=== PATIENT | male | born 1990 | race Caucasian/White ===

== ENCOUNTER 2022-08-12 20:40 | Inpatient (IN) | payer OTHER, MEDICAID, SELFPAY ==
[2022-08-12 20:44] VITALS: BP 166/105; PULSE 95; RESP 16; O2SAT 97; BMI 29.1
--- NOTE | 2022-08-12 20:45 | ED_ITS ---
HPI - Psych General Chief Complaint: Psychiatric Symptoms <Tamanna Nolan NP - Last Filed: 08/12/22 20:48> Stated Complaint: crisis eval <Tamanna Nolan NP - Last Filed: 08/12/22 20:48> Time Seen by Provider: 08/12/22 20:59 <Tamanna Nolan NP - Last Filed: 08/12/22 20:48> Source: patient <Celestina Amezcua MD - Last Filed: 08/12/22 22:55> Mode of arrival: ambulatory <Celestina Amezcua MD - Last Filed: 08/12/22 22:55> Limitations: no limitations <Celestina Amezcua MD - Last Filed: 08/12/22 22:55> History of Present Illness HPI Narrative: Patient comes to the emergency room reporting that he feels depressed, suicidal. Patient admits using heroin prior to arrival. Patient's plan is to overdose with heroin. Patient denies homicidal ideation. Patient requesting methadone. <Celestina Amezcua MD - Last Filed: 08/12/22 22:55> Related Data Home Medications: Home Medications Medication Instructions Recorded Confirmed aripiprazole 5 mg tablet 1 tab PO DAILY 08/12/22 08/12/22 bupropion HCl 300 mg 24 hr tablet, 1 tab PO DAILY 08/12/22 08/12/22 extended release clonidine HCl 0.1 mg tablet 1 tab PO DAILY 08/12/22 08/12/22 gabapentin 300 mg capsule 1 cap PO TID 08/12/22 08/12/22 methylphenidate HCl 36 mg 1 tab PO QAM 08/12/22 08/12/22 tablet,extended release 24 hr (Concerta) <Tamanna Nolan NP - Last Filed: 08/12/22 20:48> Allergies/Adverse Reactions: Allergies Allergy/AdvReac Type Severity Reaction Status Date / Time No Known Allergies Allergy Verified 08/12/22 20:48 [No Known Allergies*] <Tamanna Nolan NP - Last Filed: 08/12/22 20:48> Review of Systems Review of Systems: Constitutional : No Weight loss, No Fever, No Chills, No Night Sweats, No Fatigue, No Malaise ENT/Mouth : No Hearing loss, No Ear Pain, No Nasal Congestion, No Sinus Pain, No Hoarseness, No sore throat, No Rhinorrhea, No Swallowing Difficulty Eyes: No Eye Pain, No Swelling, No Redness, No Foreign Body, No Discharge, No Vision Changes Cardiovascular : No Chest Pain, No SOB, No Dyspnea on Exertion, No Orthopnea, No Edema, No Palpitations Respiratory : No Cough, No Sputum, No Wheezing, No Smoke Exposure, No Dyspnea Gastrointestinal : No Nausea, No Vomiting, No Diarrhea, No Constipation, No abdominal Pain, No Hematochezia, No Melena Genitourinary : no irregular bleeding, No Dysuria, No Urinary Frequency, No Hematuria, No Urinary Incontinence, No Urgency, No Flank Pain, No Urinary Flow Changes, No Hesitancy Musculoskeletal : No joint pain, No Myalgias, No Joint Swelling Skin : No Skin Lesions, No rash Neuro : No Weakness, No Numbness, No Paresthesias, No Loss of Consciousness, No Dizziness, No Headache Psych : No Anxiety/Panic, complaining of suicidal ideation, no homicidal ideatio n, admits to substance abuse Heme/Lymph: No Bruising, No Bleeding,No Lymphadenopathy Endocrine : No Polyuria, No Polydipsia, No Temperature Intolerance <Celestina Amezcua MD - Last Filed: 08/12/22 22:55> COUNTS INCLUDE 234 BEDS AT THE [facility] Past Medical History Medical History: Medical History (Updated 08/12/22 @ 22:55 by Celestina Amezcua MD) Substance abuse <Tamanna Nolan NP - Last Filed: 08/12/22 20:48> Social History Social History: Social History Advance Directives: No Advance Directives Information Provided: Yes <Tamanna Nolan NP - Last Filed: 08/12/22 20:48> Physical Exam Vital Signs: Vital Signs: Last Vital Signs Pulse 95 08/12/22 20:44 Resp 16 08/12/22 20:44 BP 166/105 H 08/12/22 20:44 Pulse Ox 97 08/12/22 20:44 O2 Del Method 08/12/22 20:44 BMI result Body Mass Index 29.1 <Tamanna Nolan NP - Last Filed: 08/12/22 20:48> Vital Signs: Last Vital Signs Pulse 95 08/12/22 20:44 Resp 16 08/12/22 20:44 BP 166/105 H 08/12/22 20:44 Pulse Ox 97 08/12/22 20:44 O2 Del Method 08/12/22 20:44 BMI result Body Mass Index 29.1 <Celestina Amezcua MD - Last Filed: 08/12/22 22:55> Const: Other: Appearance: Alert. Oriented X3. No acute distress. Eyes: Pupils equal, round and reactive to light. ENT: Pharynx normal. Neck: Normal inspection. Neck supple. No lymph nodes noted. No crepitus CVS: Normal heart rate and rhythm. Pulses normal. Normal S1 and S2 Respiratory: No respiratory distress. Breath sounds normal. No Wheezing. No rales Abdomen: Soft and nontender. No rigidity. No distention. Skin: Skin warm and dry. Normal skin color. Normal skin turgor. Extremities: No lower extremity edema. No Lacerations. No Rash Neuro: Oriented X 3. No motor deficit. No sensory deficit. Moving all extremities. No slurred speech. CN 2 through 12 grossly intact Psych: calm, cooperative, normal affect <Celestina Amezcua MD - Last Filed: 08/12/22 22:55> Course Course Course Narrative: This is rapid medical exam. Deferred additional HPI, ROS, PE to primary provider. 31yo male with history of ADHD, depression, bipolar disorder, OUD on methadone here with depression, SI with plan to OD on opiates. Currently using heroin. NO physical complaints. Patient to go direct to behavioral pod. <Tamanna Nolan NP - Last Filed: 08/12/22 20:48> This is rapid medical exam. Deferred additional HPI, ROS, PE to primary provider. 31yo male with history of ADHD, depression, bipolar disorder, OUD on methadone here with depression, SI with plan to OD on opiates. Currently using heroin. NO physical complaints. Patient to go direct to behavioral pod. I discussed with the patient that in the morning we can confirm his dose of methadone with his clinic and he can receive his dose here. In the meantime, patient will see peer overnight and be [facility]. [facility] consult pending. Physician observation started at 22:50 <Celestina Amezcua MD - Last Filed: 08/12/22 22:55> Medical Decision Making Lab Data Result Diagrams: : 08/12/22 21:16 08/12/22 21:17 <Tamanna Nolan, SOFTWARE SALES MANAGER - Last Filed: 08/12/22 20:48> Labs: Lab Results 08/12/22 08/12/22 08/12/22 Range/Units 21:16 21:16 21:17 WBC 8.6 (4.8-10.8) X10*3/uL RBC 4.52 L (4.60-5.80) X10*6/uL Hgb 13.2 L (14.0-18.0) g/dl Hct 38.9 L (42.0-52.0) % MCV 86.1 (80.0-98.0) fL MCH 29.2 (27.0-33.0) pg MCHC 33.9 (31.0-36.0) g/dl RDW 13.3 (11.0-16.0) % Plt Count 279 (160-400) X10*3/uL MPV 8.9 L (9.4-12.4) fL Immature Gran % (Auto) 0.2 (0.0-0.4) % Neut % (Auto) 62.9 (45-73) % Lymph % (Auto) 28.2 (20-40) % [place] % (Auto) 8.1 (2-11) % Eos % (Auto) 0.3 (0-4) % Baso % (Auto) 0.3 (0-2) % Lymph # (Auto) 2.4 (1.2-4.9) X10*3/uL [place] # (Auto) 0.7 (0.1-1.2) X10*3/uL Eos # (Auto) 0.0 (0.0-0.4) X10*3/uL Baso # (Auto) 0.0 (0.0-0.2) X10*3/uL Abs Immat Gran (auto) 0.02 (0.00-0.03) X10*3/uL Absolute Neuts (auto) 5.4 (2.0-8.3) x10*3/uL Absolute Nucleated RBC 0.000 (0.0-0.012) X10*3/uL Nucleated RBC % (auto) 0.0 (0.0-0.2) /100WBC Sodium 139 (135-145) mmol/L Potassium 3.6 (3.3-5.1) mmol/L Chloride 103 (96-108) mmol/L Carbon Dioxide 29 (22-29) mmol/L Anion Gap 11 L (12-20) BUN 14 (9-16) mg/dL Creatinine 0.82 (0.5-1.4) mg/dL Estim Creat Clear Calc 127.9 Estimated GFR > 60 Random Glucose 89 (60-115) mg/dL Calcium 9.3 (8.4-10.2) mg/dL Total Bilirubin 0.6 (0.0-1.0) mg/dL AST 27 (5-37) U/L ALT 25 (0-40) U/L Alkaline Phosphatase 90 (39-117) U/L Total Protein 7.3 (6.5-8.0) g/dL Albumin 4.4 (3.5-5.0) g/dL COVID-19 (SKYE) Negative (Negative) COVID-19 Clin Com See Note <Tamanna Nolan NP - Last Filed: 08/12/22 20:48> Lab Results 08/12/22 08/12/22 08/12/22 Range/Units 21:16 21:16 21:17 WBC 8.6 (4.8-10.8) X10*3/uL RBC 4.52 L (4.60-5.80) X10*6/uL Hgb 13.2 L (14.0-18.0) g/dl Hct 38.9 L (42.0-52.0) % MCV 86.1 (80.0-98.0) fL MCH 29.2 (27.0-33.0) pg MCHC 33.9 (31.0-36.0) g/dl RDW 13.3 (11.0-16.0) % Plt Count 279 (160-400) X10*3/uL MPV 8.9 L (9.4-12.4) fL Immature Gran % (Auto) 0.2 (0.0-0.4) % Neut % (Auto) 62.9 (45-73) % Lymph % (Auto) 28.2 (20-40) % [place] % (Auto) 8.1 (2-11) % Eos % (Auto) 0.3 (0-4) % Baso % (Auto) 0.3 (0-2) % Lymph # (Auto) 2.4 (1.2-4.9) X10*3/uL [place] # (Auto) 0.7 (0.1-1.2) X10*3/uL Eos # (Auto) 0.0 (0.0-0.4) X10*3/uL Baso # (Auto) 0.0 (0.0-0.2) X10*3/uL Abs Immat Gran (auto) 0.02 (0.00-0.03) X10*3/uL Absolute Neuts (auto) 5.4 (2.0-8.3) x10*3/uL Absolute Nucleated RBC 0.000 (0.0-0.012) X10*3/uL Nucleated RBC % (auto) 0.0 (0.0-0.2) /100WBC Sodium 139 (135-145) mmol/L Potassium 3.6 (3.3-5.1) mmol/L Chloride 103 (96-108) mmol/L Carbon Dioxide 29 (22-29) mmol/L Anion Gap 11 L (12-20) BUN 14 (9-16) mg/dL Creatinine 0.82 (0.5-1.4) mg/dL Estim Creat Clear Calc 127.9 Estimated GFR > 60 Random Glucose 89 (60-115) mg/dL Calcium 9.3 (8.4-10.2) mg/dL Total Bilirubin 0.6 (0.0-1.0) mg/dL AST 27 (5-37) U/L ALT 25 (0-40) U/L Alkaline Phosphatase 90 (39-117) U/L Total Protein 7.3 (6.5-8.0) g/dL Albumin 4.4 (3.5-5.0) g/dL COVID-19 (SKYE) Negative (Negative) COVID-19 Clin Com See Note <Celestina Amezcua MD - Last Filed: 08/12/22 22:55> Discharge Plan Discharge Clinical Impression: Substance abuse, Suicidal ideations <Tamanna Nolan NP - Last Filed: 08/12/22 20:48> Patient Disposition: Still a Patient <Tamanna Nolan NP - Last Filed: 08/12/22 20:48> Prescriptions: No Action clonidine HCl 0.1 mg tablet 1 tab PO DAILY gabapentin 300 mg capsule 1 cap PO TID methylphenidate HCl [Concerta] 36 mg tablet extended release 24hr 1 tab PO QAM aripiprazole 5 mg tablet 1 tab PO DAILY bupropion HCl 300 mg tablet extended release 24 hr 1 tab PO DAILY <Tamanna Nolan NP - Last Filed: 08/12/22 20:48>
[2022-08-12 21:10] VITALS: PULSE 95
[2022-08-12 21:23] LABS: MANUAL DIFF FLAG NO
[2022-08-12 21:24] LABS: Basophils Percent Auto 0.3 % (0-2); Eosinophils Percent Auto 0.3 % (0-4); Hematocrit 38.9 % (42.0-52.0); Hemoglobin 13.2 g/dl (14.0-18.0); Imm Gran Abs Auto 0.02 X10*3/uL (0.00-0.03); Imm Gran Pct Auto 0.2 % (0.0-0.4); Lymphocytes Absolute Auto 2.4 X10*3/uL (1.2-4.9); Lymphocytes Percent Auto 28.2 % (20-40); Mean Corpuscular HGB Conc 33.9 g/dl (31.0-36.0); Mean Corpuscular Hemoglobin 29.2 pg (27.0-33.0); Mean Corpuscular Volume 86.1 fL (80.0-98.0); Mean Platelet Volume 8.9 fL (9.4-12.4); Monocytes Absolute Auto 0.7 X10*3/uL (0.1-1.2); Monocytes Percent Auto 8.1 % (2-11); Neutrophils Absolute Auto 5.4 x10*3/uL (2.0-8.3); Neutrophils Percent Auto 62.9 % (45-73); Platelet Count 279 X10*3/uL (160-400); Red Blood Count 4.52 X10*6/uL (4.60-5.80); Red Cell Distribution Width 13.3 % (11.0-16.0); White Blood Count 8.6 X10*3/uL (4.8-10.8)
[2022-08-12 21:41] LABS: COVID-19 Test Negative (Negative)
[2022-08-12 21:52] LABS: Alanine Aminotransferase 25 U/L (0-40); Albumin Level 4.4 g/dL (3.5-5.0); Alkaline Phosphatase 90 U/L (39-117); Anion Gap 11 (12-20); Aspartate Amino Transferase 27 U/L (5-37); Bilirubin Total 0.6 mg/dL (0.0-1.0); Blood Urea Nitrogen 14 mg/dL (9-16); Calcium 9.3 mg/dL (8.4-10.2); Carbon Dioxide 29 mmol/L (22-29); Chloride 103 mmol/L (96-108); Creatinine Clr Calc Pharmacy 127.9; Estimated Glomerular Filt Rate > 60; Glucose Random 89 mg/dL (60-115); Potassium 3.6 mmol/L (3.3-5.1); Sodium 139 mmol/L (135-145); Total Protein 7.3 g/dL (6.5-8.0)
[2022-08-13 01:15] LABS: Ethanol < 10 mg/dL
[2022-08-13 02:58] LABS: Amphetamine Screen Urine Not Detected (Not Detect); Barbiturates, Urine Not Detected (Not Detect); Benzodiazepines Screen Urine Not Detected (Not Detect); Cannabinoid Screen Urine POSITIVE (Not Detect); Cocaine Screen Urine POSITIVE (Not Detect); Fentanyl, urine POSITIVE (Not Detect); Opiate Screen Urine POSITIVE (Not Detect); Phencyclidine Screen Urine Not Detected (Not Detect)
--- NOTE | 2022-08-13 04:52 | PC.NURSE ---
Patient slept through the night, no distress observed/reported, asymptomatic of withdrawal at this time, VSS, behavior non concerning, follows direction well, engaged well with N, disposition is section 12 inpatient bed search, med rec completed/pending provider's approval, pending methadone verification in the morning, will continue to monitor.
--- NOTE | 2022-08-13 07:05 | PC.NURSE ---
Methadone dose verified during shift change by Martin HOYOS. Dose 90mg PO. Faxed to pharmacy
--- NOTE | 2022-08-13 07:12 | HE.PHANOTE ---
Methadone verification recieved. Done by Martin Waldrop at [facility], dose is 90 mg daily. Last dose was 08/11/22 @1013 am
[2022-08-13 08:02] VITALS: RESP 16
--- NOTE | 2022-08-13 08:02 | PC.NURSE ---
Home medications requested to be verified by ED attending.
[2022-08-13 08:35] VITALS: BP 114/60; PULSE 66; RESP 16; TEMP 36.7; O2SAT 96
--- NOTE | 2022-08-13 08:36 | MHC.CARE ---
CARE Team met with pt for a risk assessment to determine level of care. Pt currently endorses SI with a plan to OD on opiates. He appears depressed and hopeless. Pt appears to be in acute crisis at this time and reported to have used substances yesterday (fentynl). Upon approach, pt was sleeping in his bed. Pt then woke up but kept his eyes closed. Pt was cooperative and oriented x4. He appears his stated age, with normal grooming and dressed in hospital issued attire. Eye contact is minimal, speech is WNL. Pt's mood is depressed with visible signs of distress. Pt reported to have depressive symptoms for approximately a week with a reported precipitant of losing everything, my house, my girlfriend and my family. Pt denies AH/VH/HI. Pt verbalized needing a higher level of care and is advocating for IPLOC. Case consulted with Chary MARIN.
[2022-08-13] MEDS: methADONE HCl 20 MG/2 ML ORAL.CONC 90 MG PO (09:23)
[2022-08-13] MEDS: Gabapentin 300 MG CAPSULE PO ×2 (09:27→14:15)
[2022-08-13] MEDS: cloNIDine HCL 0.1 MG TABLET PO (09:27)
--- NOTE | 2022-08-13 09:45 | ECG_ITS ---
Test Reason : +MENDIOLA for cocaine Blood Pressure : / mmHG Vent. Rate : 058 BPM Atrial Rate : 058 BPM P-R Int : 108 ms QRS Dur : 088 ms QT Int : 440 ms P-R-T Axes : 044 072 045 degrees QTc Int : 431 ms Sinus bradycardia with short MD Otherwise normal ECG When compared with ECG of 29-OCT-2019 08:21, No significant change was found Referred By: Celestina Amezcua Electronically Signed By:DENISE ZARCO MD
[2022-08-13 13:02] VITALS: BP 126/74; PULSE 71; RESP 16; TEMP 35.9; O2SAT 97
--- NOTE | 2022-08-13 20:22 | PC.ADMIT ---
PT is a 31 year old male that arrived on this unit at 12:55 from the [facility].PT signed in as a CV and placed on 15 minutes safety checks. PT presented to [facility] ED after using heroin and planning to complete suicide by overdosing due to feeling helpless/hopeless. PT states he lost everything including his girlfriend and 2 young children, his house and car due to substance use. PT's hx inludes ADHD, depression, OUD, as well as a more recent dx of bipolar disorder in which pt states he has been med compliant. PT has a long history of requiring IPLOC as well as several admissions into different detoxes. PT states his OUD started approximately 4 years ago and he has been participating in MAT @ [facility] in [place], [place] but despite this, pt continues to use heroin. UTOX + for opiates, fentanyl, cocaine and THC. COVID negative. PT is a current everyday smoker and smokes approximately 1 pack per day. PT requests nicotine replacement. PT states he has already received a flu vaccine this season. PT denies current SI/HI, AH/VH, feels safe on this unit. Of note, pt was sedated throughout admission process so it was difficult to engage. Safety tool still needs to be completed once patient is fully awake and able to engage in plan. TX plan completed. VS stable. PT resting in bed- respirations even and unlabored. Nothing further to report at this time.
[2022-08-13 22:02] VITALS: BP 114/56; PULSE 59; RESP 18; TEMP 36.9; O2SAT 99
[2022-08-14 06:00] VITALS: BP 128/73; PULSE 63; RESP 16; TEMP 36.7; O2SAT 96
[2022-08-14 08:44] LABS: Estimated Average Glucose 100 mg/dL; Hemoglobin A1c % 5.1 %
[2022-08-14] MEDS: cloNIDine HCL 0.1 MG TABLET PO (08:50)
[2022-08-14] MEDS: Gabapentin 300 MG CAPSULE PO ×3 (08:50→21:17)
[2022-08-14] MEDS: methADONE HCl 20 MG/2 ML ORAL.CONC 90 MG PO (08:51)
[2022-08-14 08:57] LABS: Cholesterol 191 mg/dL; HDL Cholesterol 33 mg/dL; LDL Cholesterol Calculated 130 mg/dl; Magnesium 1.9 mg/dL (1.6-2.6); Triglycerides 140 mg/dL
[2022-08-14 09:15] LABS: Free T4 (Free Thyroxine) 0.81 ng/dL (0.71-1.85); Thyroid Stimulating Hormone 1.15 uIU/mL (0.32-4.0)
[2022-08-14 09:28] LABS: Folate 14.8 ng/mL (> or = 4.0); Vitamin B12 385 pg/mL (200-900)
[2022-08-14] MEDS: Acetaminophen 325 MG TABLET 650 MG PO (12:22)
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
[2022-08-14 16:47] VITALS: BP 112/58; PULSE 67; RESP 16; TEMP 36.4; O2SAT 99
[2022-08-15 06:00] VITALS: BP 119/63; PULSE 64; RESP 14; TEMP 36.8; O2SAT 98
[2022-08-15] MEDS: methADONE HCl 20 MG/2 ML ORAL.CONC 90 MG PO (08:38)
[2022-08-15] MEDS: cloNIDine HCL 0.1 MG TABLET PO (08:39)
[2022-08-15] MEDS: Gabapentin 300 MG CAPSULE PO ×2 (08:40→14:27)
[2022-08-15 10:14] LABS: COVID-19 Test Negative (Negative); IDNOW Serial# BCCEAD1C
--- NOTE | 2022-08-15 15:17 | HO.PSYCHPN ---
Subjective Subjective Date of Service: 08/15/22 Reason For Visit: polysubstance use disorder suicidal ideation Subjective Notes: 3 Day Healthcare Proxy: No Guardianship: No Medical Problems Affecting Mental Status: No Interim History: In bed for most of the day. No interest in meeting-asks to increase Methadone and Gabapentin Three day notice filed Medication Compliance: Yes Side effects from medications: No Attending Groups: No Review of Systems Acute medical concerns: No Medical Review of Systems: unchanged Mental Status Exam Mental Status Exam Patient Appearance: Fatigued Patient Orientation: Person, Place, Time and Situation Patient Behavior: Resistive to Care Mood Description: Flat Affect Description: Flat Patient Cognition Impaired: No Ability to Follow Directions: Fair Speech Pattern: Spontaneous Speech Memory Description: Episodic Impaired Hallucinations: None Delusions: Not Present Thought Process: Evasive Thought Content: positive for Evasive Judgement: Fair Diagnostics Vital Signs (24Hr): Vital Signs - 24 hr 08/14/22 16:47 08/15/22 06:00 Temperature 97.6 F 98.3 F Pulse Rate 67 64 Respiratory Rate 16 14 Blood Pressure 112/58 L 119/63 Pulse Oximetry 99 98 Oxygen Delivery Method Room Air Room Air BMI result Body Mass Index 29.1 Labs Results: 08/12/22 21:16 08/12/22 21:17 Labs: Laboratory Results - last 48 hr 08/14/22 08/14/22 08/14/22 08:22 08:22 08:22 Estimat Average Glucose 100 Hemoglobin A1c % 5.1 Magnesium 1.9 Triglycerides 140 Cholesterol 191 LDL Cholesterol, Calc 130 HDL Cholesterol 33 Vitamin B12 385 Folate 14.8 TSH 1.15 Free T4 0.81 COVID-19 (SKYE) COVID-19 Clin Com 08/15/22 09:45 Estimat Average Glucose Hemoglobin A1c % Magnesium Triglycerides Cholesterol LDL Cholesterol, Calc HDL Cholesterol Vitamin B12 Folate TSH Free T4 COVID-19 (SKYE) Negative COVID-19 Clin Com See Note Medications Medications Current Medications Acetaminophen (Acetaminophen 325 Mg Tablet) 650 mg PO Q6H PRN PRN Reason: Headache/Pain Mild Scale (1-3) Last Admin: 08/14/22 12:22 Dose: 650 mg Al Hydroxide/Mg Hydroxide (Magnesium Hydrox/Alum Hydrox 30 Ml Oral.Susp) 30 ml PO Q6H PRN PRN Reason: Heartburn/Nausea Aripiprazole (Aripiprazole 5 Mg Tablet) 5 mg PO DAILY [facility] Last Admin: 08/15/22 08:44 Dose: Not Given Bupropion HCl (Bupropion Hcl Xl 300 Mg Tab.Er.24h) 300 mg PO DAILY [facility] Last Admin: 08/15/22 08:44 Dose: Not Given Clonidine HCl (Clonidine Hcl 0.1 Mg Tablet) 0.1 mg PO DAILY [facility]; Protocol Last Admin: 08/15/22 08:39 Dose: 0.1 mg Gabapentin (Gabapentin 300 Mg Capsule) 300 mg PO TID [facility] Last Admin: 08/15/22 14:27 Dose: 300 mg Hydroxyzine HCl (Hydroxyzine Hcl 25 Mg Tablet) 25 mg PO Q6H PRN PRN Reason: Anxiety Magnesium Hydroxide (Milk Of Magnesia 30 Ml Oral.Susp) 30 ml PO DAILY PRN PRN Reason: Constipation Methadone HCl (Methadone Hcl 20 Mg/2 Ml Oral.Conc) 90 mg PO DAILY [facility] Last Admin: 08/15/22 08:38 Dose: 90 mg Patient Own ( Methylphenidate Hcl [Concerta] 36 Mg Tablet Extended Release 24h 1 tab PO DAILY [facility] Last Admin: 08/15/22 08:51 Dose: 1 tab Trazodone HCl (Trazodone Hcl 50 Mg Tablet) 50 mg PO BEDTIME PRN PRN Reason: Insomnia Allergies Allergies Allergy/AdvReac Type Severity Reaction Status Date / Time No Known Allergies Allergy Verified 08/12/22 20:48 [No Known Allergies*] Assessment & Plan Assessment & Plan (1) Bipolar disorder: Status: Acute Code(s): F31.9 - Bipolar disorder, unspecified (2) Opioid use disorder, severe, dependence: Status: Acute Code(s): F11.20 - Opioid dependence, uncomplicated (3) Cocaine use disorder, severe, dependence: Status: Acute Code(s): F14.20 - Cocaine dependence, uncomplicated Plan Continue current regime until pt is willing to meet and discuss what changes will be helpful. 08/15/22: Gabapentin 400 mg tid (home dose) Addiction consult Reason for contiued inpatient stay Substantial Risk for: rapid decompensation Time Spent With Patient Time: Total time managing care of this patient today 15____ minutes.
[2022-08-15] MEDS: hydrOXYzine HCL 25 MG TABLET PO (17:31)
[2022-08-15 18:00] VITALS: BP 112/70; PULSE 68; RESP 16; TEMP 36.6; O2SAT 99
[2022-08-15] MEDS: Gabapentin 400 MG CAPSULE PO (19:36)
[2022-08-16 06:00] VITALS: BP 134/77; PULSE 70; RESP 14; TEMP 36.7; O2SAT 100
[2022-08-16] MEDS: Gabapentin 400 MG CAPSULE PO (08:44)
[2022-08-16] MEDS: methADONE HCl 20 MG/2 ML ORAL.CONC 90 MG PO (08:46)
[2022-08-16] MEDS: hydrOXYzine HCL 25 MG TABLET PO (11:54)
[2022-08-16] MEDS: Gabapentin 300 MG CAPSULE 600 MG PO ×2 (14:02→20:26)
[2022-08-16] MEDS: cloNIDine HCL 0.1 MG TABLET PO (14:10)
--- NOTE | 2022-08-16 15:42 | MHC.RECOVRN ---
Met with pt after consult placed to Addiction Medicine to discuss methadone titration. Pt awake, alert, easily engages in conversation, present in milieu. Pt reports being on methadone x 1 year and at current dose (90 mg) for a few months at [facility] in [place]. Pt reports withdrawal symptoms at night including body aches and sweating. Prior to admission to [facility], pt was using heroin, 2-2.5 bundles daily IN. After dc, pt would like CSS placement. Discussed with Alyssa Dudley NP. Plan to increase by 5 mg.
[2022-08-16] MEDS: methADONE HCl 5 MG TABLET PO (16:22)
[2022-08-16 16:25] VITALS: BP 115/55; PULSE 60; TEMP 36.7; O2SAT 96
--- NOTE | 2022-08-16 20:00 | HO.PSYCHPN ---
Subjective Subjective Date of Service: 08/16/22 Reason For Visit: polysubstance use disorder suicidal ideation Subjective Notes: Conditional Voluntary and 3 Day Healthcare Proxy: No Guardianship: No Medical Problems Affecting Mental Status: No Interim History: Pt agreed to meet today. Full med review and changes. Pt has lost everything due to addiction Discussed CSS, discussed treatment strategy Seen by addiction team, talked about how all of his belongings are scattered at different peoples homes with no idea how to get them together-no current friends or contacts whom he believes would be willing to help Encouraged to retract TDN and work with team. Medication Compliance: Intermittent Side effects from medications: No Attending Groups: Intermittent Review of Systems Acute medical concerns: No Medical Review of Systems: unchanged Mental Status Exam Mental Status Exam Patient Appearance: Fatigued Patient Orientation: Person, Place, Time and Situation Level of Consciousness: Alert Patient Behavior: Talkative and Good Eye Contact Mood Description: Depressed and Flat Affect Description: Flat Patient Cognition Impaired: No Ability to Follow Directions: Fair Speech Pattern: Spontaneous Speech Memory Description: Episodic Impaired Hallucinations: None Delusions: Not Present Thought Process: Rumination Thought Content: positive for Perseveration, positive for Slowed Thinking and positive for Suicidal Ideation Depressive Symptoms: Thoughts of /Suicide, Low Self Esteem and Difficulty Concentrating Judgement: Fair Diagnostics Vital Signs (24Hr): Vital Signs - 24 hr 08/16/22 06:00 Temperature 98.1 F Pulse Rate 70 Respiratory Rate 14 Blood Pressure 134/77 Pulse Oximetry 100 Oxygen Delivery Method Room Air BMI result Body Mass Index 29.1 Labs Results: 08/12/22 21:16 08/12/22 21:17 Labs: Laboratory Results - last 48 hr 08/15/22 09:45 COVID-19 (SKYE) Negative COVID-19 Clin Com See Note Medications Medications Current Medications Acetaminophen (Acetaminophen 325 Mg Tablet) 650 mg PO Q6H PRN PRN Reason: Headache/Pain Mild Scale (1-3) Last Admin: 08/14/22 12:22 Dose: 650 mg Al Hydroxide/Mg Hydroxide (Magnesium Hydrox/Alum Hydrox 30 Ml Oral.Susp) 30 ml PO Q6H PRN PRN Reason: Heartburn/Nausea Chlorpromazine HCl (Chlorpromazine Hcl 25 Mg Tablet) 25 mg PO Q4H PRN PRN Reason: anxiety Clonidine HCl (Clonidine Hcl 0.1 Mg Tablet) 0.1 mg PO DAILY [facility]; Protocol Last Admin: 08/16/22 08:46 Dose: Not Given Gabapentin (Gabapentin 300 Mg Capsule) 600 mg PO TID [facility] Last Admin: 08/16/22 14:02 Dose: 600 mg Hydroxyzine HCl (Hydroxyzine Hcl 25 Mg Tablet) 25 mg PO Q6H PRN PRN Reason: Anxiety Last Admin: 08/16/22 11:54 Dose: 25 mg Magnesium Hydroxide (Milk Of Magnesia 30 Ml Oral.Susp) 30 ml PO DAILY PRN PRN Reason: Constipation Methadone HCl (Methadone Hcl 20 Mg/2 Ml Oral.Conc) 95 mg PO DAILY [facility] Patient Own ( Methylphenidate Hcl [Concerta] 36 Mg Tablet Extended Release 24h 1 tab PO DAILY [facility] Last Admin: 08/16/22 08:43 Dose: 1 tab Oxcarbazepine (Oxcarbazepine 300 Mg Tablet) 600 mg PO BEDTIME [facility] Trazodone HCl (Trazodone Hcl 50 Mg Tablet) 50 mg PO BEDTIME PRN PRN Reason: Insomnia Allergies Allergies Allergy/AdvReac Type Severity Reaction Status Date / Time No Known Allergies Allergy Verified 08/12/22 20:48 [No Known Allergies*] Assessment & Plan Assessment & Plan (1) Bipolar disorder: Status: Acute Code(s): F31.9 - Bipolar disorder, unspecified (2) Opioid use disorder, severe, dependence: Status: Acute Code(s): F11.20 - Opioid dependence, uncomplicated (3) Cocaine use disorder, severe, dependence: Status: Acute Code(s): F14.20 - Cocaine dependence, uncomplicated Plan Continue current regime until pt is willing to meet and discuss what changes will be helpful. 08/15/22: Gabapentin 400 mg tid (home dose) Addiction consult 08/16/22: Encourage engagement in plan of care Medications reviewed, discussed, changes implemented. Pt reports main sx is anxiety at this time. Informed Consent: understands Reason for contiued inpatient stay Substantial Risk for: harm to self and rapid decompensation Time Spent With Patient Time: Total time managing care of this patient today _35___ minutes.
[2022-08-16] MEDS: OXcarbazepine 300 MG TABLET 600 MG PO (20:26)
[2022-08-17] MEDS: methADONE HCl 20 MG/2 ML ORAL.CONC 95 MG PO (07:55)
[2022-08-17] MEDS: cloNIDine HCL 0.1 MG TABLET PO (07:56)
[2022-08-17] MEDS: Gabapentin 300 MG CAPSULE 600 MG PO ×4 (07:56→19:21)
[2022-08-17 08:07] VITALS: BP 142/71; PULSE 74; RESP 18; TEMP 36.7; O2SAT 97
[2022-08-17 09:13] LABS: COVID-19 Test Negative (Negative); IDNOW Serial# BCCEAD1C
--- NOTE | 2022-08-17 12:21 | HO.PSYCHPN ---
Subjective Subjective Date of Service: 08/17/22 Reason For Visit: polysubstance use disorder suicidal ideation Subjective Notes: 3 Day Healthcare Proxy: No Guardianship: No Medical Problems Affecting Mental Status: No Interim History: Three day notice 08/19. Plans to leave on 08/19 Declines interest in treatment, placement currently Asks for medications-Ambien, benzodiazepines for anxiety, sleep meds. Medication Compliance: Yes Side effects from medications: No Attending Groups: No Review of Systems Acute medical concerns: No Medical Review of Systems: unchanged Mental Status Exam Mental Status Exam Patient Appearance: Appropriate Patient Orientation: Person, Place, Time and Situation Level of Consciousness: Alert Patient Behavior: Talkative and Good Eye Contact Mood Description: Flat Affect Description: Flat Patient Cognition Impaired: No Ability to Follow Directions: Fair Speech Pattern: Spontaneous Speech Memory Description: Episodic Impaired Hallucinations: None Delusions: Not Present Thought Process: Rumination Thought Content: positive for Perseveration Depressive Symptoms: Low Self Esteem Judgement: Fair Diagnostics Vital Signs (24Hr): Vital Signs - 24 hr 08/16/22 16:25 08/17/22 08:07 Temperature 98.0 F 98.1 F Pulse Rate 60 74 Respiratory Rate 18 Blood Pressure 115/55 L 142/71 H Pulse Oximetry 96 97 Oxygen Delivery Method Room Air Room Air BMI result Body Mass Index 29.1 Labs Results: 08/12/22 21:16 08/12/22 21:17 Labs: Laboratory Results - last 48 hr 08/17/22 08:40 COVID-19 (SKYE) Negative COVID-19 Clin Com See Note Medications Medications Current Medications Acetaminophen (Acetaminophen 325 Mg Tablet) 650 mg PO Q6H PRN PRN Reason: Headache/Pain Mild Scale (1-3) Last Admin: 08/14/22 12:22 Dose: 650 mg Al Hydroxide/Mg Hydroxide (Magnesium Hydrox/Alum Hydrox 30 Ml Oral.Susp) 30 ml PO Q6H PRN PRN Reason: Heartburn/Nausea Chlorpromazine HCl (Chlorpromazine Hcl 25 Mg Tablet) 25 mg PO Q4H PRN PRN Reason: anxiety Clonidine HCl (Clonidine Hcl 0.1 Mg Tablet) 0.1 mg PO DAILY [facility]; Protocol Last Admin: 08/17/22 07:56 Dose: 0.1 mg Gabapentin (Gabapentin 300 Mg Capsule) 600 mg PO TID [facility] Last Admin: 08/17/22 07:56 Dose: 600 mg Hydroxyzine HCl (Hydroxyzine Hcl 25 Mg Tablet) 25 mg PO Q6H PRN PRN Reason: Anxiety Last Admin: 08/16/22 11:54 Dose: 25 mg Magnesium Hydroxide (Milk Of Magnesia 30 Ml Oral.Susp) 30 ml PO DAILY PRN PRN Reason: Constipation Methadone HCl (Methadone Hcl 20 Mg/2 Ml Oral.Conc) 95 mg PO DAILY [facility] Last Admin: 08/17/22 07:55 Dose: 95 mg Patient Own ( Methylphenidate Hcl [Concerta] 36 Mg Tablet Extended Release 24h 1 tab PO DAILY [facility] Last Admin: 08/17/22 08:00 Dose: 1 tab Oxcarbazepine (Oxcarbazepine 300 Mg Tablet) 600 mg PO BEDTIME [facility] Last Admin: 08/16/22 20:26 Dose: 600 mg Trazodone HCl (Trazodone Hcl 50 Mg Tablet) 50 mg PO BEDTIME PRN PRN Reason: Insomnia Allergies Allergies Allergy/AdvReac Type Severity Reaction Status Date / Time No Known Allergies Allergy Verified 08/12/22 20:48 [No Known Allergies*] Assessment & Plan Assessment & Plan (1) Bipolar disorder: Status: Acute Code(s): F31.9 - Bipolar disorder, unspecified (2) Opioid use disorder, severe, dependence: Status: Acute Code(s): F11.20 - Opioid dependence, uncomplicated (3) Cocaine use disorder, severe, dependence: Status: Acute Code(s): F14.20 - Cocaine dependence, uncomplicated Plan Continue current regime until pt is willing to meet and discuss what changes will be helpful. 08/15/22: Gabapentin 400 mg tid (home dose) Addiction consult 08/16/22: Encourage engagement in plan of care Medications reviewed, discussed, changes implemented. Pt reports main sx is anxiety at this time. 08/17/22: Gabapentin 600 mg tid to assist with anxiety mgt. Trazodone 100 mg Chlorpromazine 100 mg hs as needed for insomnia Patient educated on: medication risk/benefits and therapeutic strategies Informed Consent: further education needed Reason for contiued inpatient stay Substantial Risk for: rapid decompensation Time Spent With Patient Time: Total time managing care of this patient today __20__ minutes.
--- NOTE | 2022-08-17 16:31 | PC.NURSE ---
Patient declined offer for an order for nicotine replacement.
[2022-08-17 18:00] VITALS: BP 109/68; PULSE 69; RESP 16; TEMP 36.4; O2SAT 98
[2022-08-17] MEDS: chlorproMAZINE HCl 25 MG TABLET PO ×2 (19:18→21:07)
[2022-08-17] MEDS: chlorproMAZINE HCl 100 MG TABLET PO (19:21)
[2022-08-17] MEDS: OXcarbazepine 300 MG TABLET 600 MG PO (19:22)
[2022-08-18 06:00] VITALS: BP 116/60; PULSE 68; RESP 16; TEMP 36.7
[2022-08-18] MEDS: Gabapentin 300 MG CAPSULE 600 MG PO ×2 (08:24→12:20)
[2022-08-18] MEDS: methADONE HCl 20 MG/2 ML ORAL.CONC 95 MG PO (08:24)
[2022-08-18] MEDS: cloNIDine HCL 0.1 MG TABLET PO (08:24)
[2022-08-18] MEDS: chlorproMAZINE HCl 25 MG TABLET PO (12:20)
[2022-08-18] MEDS: hydrOXYzine HCL 25 MG TABLET PO (15:14)
--- NOTE | 2022-08-18 17:56 | P.DS_ITS ---
DS: Providers Provider Date of Service: 08/18/22 Date of admission: 08/13/22 10:42 Date of discharge: 08/18/22 Primary care physician: None Physician Admitting clinician: Rupali Perdomo Attending physician on admission: Ian Pettit Consults: 08/15/22 18:49 Addiction Medicine Routine Consulting Provider: Addiction Covering Reason for consultation: pt would like to titrate Methadone Has provider been notified: No Attending physician on discharge: Ian Pettit Discharging clinician: Rupali Perdomo DS: Diagnosis Discharge Diagnosis (1) Bipolar disorder: Status: Acute (2) Opioid use disorder, severe, dependence: Status: Acute (3) Cocaine use disorder, severe, dependence: Status: Acute DS: Medications Discharge Medications Home Medications: Home Medications Medication Instructions Recorded Confirmed methadone 10 mg tablet 90 mg PO DAILY 08/13/22 08/13/22 Previous Rx's Medication Instructions Recorded aripiprazole 5 mg tablet 1 tab PO DAILY #7 tabs 08/18/22 bupropion HCl 300 mg 24 hr tablet, 1 tab PO DAILY #7 tabs 08/18/22 extended release clonidine HCl 0.1 mg tablet 1 tab PO DAILY #7 tabs 08/18/22 gabapentin 300 mg capsule 600 mg PO QID #28 caps 08/18/22 methylphenidate HCl 36 mg 1 tab PO QAM #7 tabs 08/18/22 tablet,extended release 24 hr (Concerta) oxcarbazepine 300 mg tablet 600 mg PO BEDTIME #7 tabs 08/18/22 Mental Status Exam Mental Status Exam Patient Appearance: Appropriate Patient Orientation: Person, Place, Time and Situation Level of Consciousness: Alert Patient Behavior: Talkative and Good Eye Contact Mood Description: Flat Affect Description: Flat Patient Cognition Impaired: No Ability to Follow Directions: Fair Speech Pattern: Spontaneous Speech Memory Description: Episodic Impaired Hallucinations: None Delusions: Not Present Thought Process: Rumination Thought Content: positive for Perseveration Depressive Symptoms: Low Self Esteem Judgement: Fair Data Data Completed and Pending Completed studies during hospitalization [Text1]: 08/12/22 08/12/22 08/12/22 21:16 21:16 21:17 WBC 8.6 RBC 4.52 L Hgb 13.2 L Hct 38.9 L MCV 86.1 MCH 29.2 MCHC 33.9 RDW 13.3 Plt Count 279 MPV 8.9 L Immature Gran % (Auto) 0.2 Neut % (Auto) 62.9 Lymph % (Auto) 28.2 [place] % (Auto) 8.1 Eos % (Auto) 0.3 Baso % (Auto) 0.3 Lymph # (Auto) 2.4 [place] # (Auto) 0.7 Eos # (Auto) 0.0 Baso # (Auto) 0.0 Abs Immat Gran (auto) 0.02 Absolute Neuts (auto) 5.4 Absolute Nucleated RBC 0.000 Nucleated RBC % (auto) 0.0 Sodium 139 Potassium 3.6 Chloride 103 Carbon Dioxide 29 Anion Gap 11 L BUN 14 Creatinine 0.82 Estim Creat Clear Calc 127.9 Estimated GFR > 60 Random Glucose 89 Estimat Average Glucose Hemoglobin A1c % Calcium 9.3 Magnesium Total Bilirubin 0.6 AST 27 ALT 25 Alkaline Phosphatase 90 Total Protein 7.3 Albumin 4.4 Triglycerides Cholesterol LDL Cholesterol, Calc HDL Cholesterol Vitamin B12 Folate TSH Free T4 Urine Opiates Screen Urine Fentanyl Screen Ur Barbiturates Screen Ur Phencyclidine Scrn Ur Amphetamines Screen U Benzodiazepines Scrn Urine Cocaine Screen U Marijuana (THC) Screen Ethyl Alcohol < 10 COVID-19 (SKYE) Negative COVID-19 Clin Com See Note 08/13/22 08/14/22 08/14/22 02:42 08:22 08:22 WBC RBC Hgb Hct MCV MCH MCHC RDW Plt Count MPV Immature Gran % (Auto) Neut % (Auto) Lymph % (Auto) [place] % (Auto) Eos % (Auto) Baso % (Auto) Lymph # (Auto) [place] # (Auto) Eos # (Auto) Baso # (Auto) Abs Immat Gran (auto) Absolute Neuts (auto) Absolute Nucleated RBC Nucleated RBC % (auto) Sodium Potassium Chloride Carbon Dioxide Anion Gap BUN Creatinine Estim Creat Clear Calc Estimated GFR Random Glucose Estimat Average Glucose 100 Hemoglobin A1c % 5.1 Calcium Magnesium 1.9 Total Bilirubin AST ALT Alkaline Phosphatase Total Protein Albumin Triglycerides 140 Cholesterol 191 LDL Cholesterol, Calc 130 HDL Cholesterol 33 Vitamin B12 Folate TSH 1.15 Free T4 0.81 Urine Opiates Screen POSITIVE H Urine Fentanyl Screen POSITIVE H Ur Barbiturates Screen Not Detected Ur Phencyclidine Scrn Not Detected Ur Amphetamines Screen Not Detected U Benzodiazepines Scrn Not Detected Urine Cocaine Screen POSITIVE H U Marijuana (THC) Screen POSITIVE H Ethyl Alcohol COVID-19 ([facility]) COVID-19 Clin Com 08/14/22 08/15/22 08/17/22 08:22 09:45 08:40 WBC RBC Hgb Hct MCV MCH MCHC RDW Plt Count MPV Immature Gran % (Auto) Neut % (Auto) Lymph % (Auto) [place] % (Auto) Eos % (Auto) Baso % (Auto) Lymph # (Auto) [place] # (Auto) Eos # (Auto) Baso # (Auto) Abs Immat Gran (auto) Absolute Neuts (auto) Absolute Nucleated RBC Nucleated RBC % (auto) Sodium Potassium Chloride Carbon Dioxide Anion Gap BUN Creatinine Estim Creat Clear Calc Estimated GFR Random Glucose Estimat Average Glucose Hemoglobin A1c % Calcium Magnesium Total Bilirubin AST ALT Alkaline Phosphatase Total Protein Albumin Triglycerides Cholesterol LDL Cholesterol, Calc HDL Cholesterol Vitamin B12 385 Folate 14.8 TSH Free T4 Urine Opiates Screen Urine Fentanyl Screen Ur Barbiturates Screen Ur Phencyclidine Scrn Ur Amphetamines Screen U Benzodiazepines Scrn Urine Cocaine Screen U Marijuana (THC) Screen Ethyl Alcohol COVID-19 ([facility]YE) Negative Negative COVID-19 Clin Com See Note See Note DS: Summary Hospital Course Hospital Course: Admission to adult psychiatry for exacerbation of substance abuse and bipolar disorder. Trileptal and Gabapentin were initiated, Abilify, Wellbutrin, Cloni dine, Concerta and Methadone were continued. Pt reported no resources for assistance during admission and having ended all relationships due to addictive illness. However, he spoke with family(mother he reports) regularly while admitted. Pt signed a three day notice to 08/19/22, had minimal participation in treatment, expressed interest in CSS however would not retract his three day to allow team to complete the process. He presented characterological symptoms in the milieu which had negative effects on other patients. As a result, he was discharged one day before his three day notice exp ired. One week's worth of prescriptions were sent and pt was encouraged to continue treatment on an out patient basis and pursue CSS. Time spent discussing smoking cessation with patient: 3 to 10 minutes Status at Discharge Functional status at discharge: independent ambulation Overall status at discharge: patient is back to baseline Time Spent with Patient Time attestation: Total time managing care of this patient today __35__ minutes. Time spent: Greater than 30 minutes Discharge Plan Discharge Anticipated Discharge Date/Time: 08/18/22 16:08 Patient Disposition: [facility] Discharge Diagnosis: Bipolar Disorder Opioid Use Disorder Cocaine Use Disorder Substance Use Disorder Referrals: Lissette Galeano [facility] [Other] - Tomorrow (Referral for [facility] substance use treatment Patient to follow-up on referral after discharge ) [facility] [Other] - Tomorrow (Referral for substance use treatment Patient to follow-up on referral after discharge.) [facility] [Other] - 1 Week (Walk-In Clinic) Dr. Welsh [Other] - 09/06/22 1:30 pm (Follow-up appointment with outpatient psychi atric provider.) [facility] [Other] - Tomorrow (Outpatient therapist to follow-up with patient after discharge to schedule appointment. Patient should follow-up with provider after discharge to give updated contact information.) Discharge Medications: New oxcarbazepine 300 mg Tablet 600 mg PO BEDTIME Qty: 7 0RF gabapentin 300 mg Capsule 600 mg PO QID Qty: 28 0RF Continued methadone 10 mg Tablet 90 mg PO DAILY clonidine HCl 0.1 mg tablet 1 tab PO DAILY Qty: 7 0RF methylphenidate HCl [Concerta] 36 mg tablet extended release 24hr 1 tab PO QAM Qty: 7 0RF aripiprazole 5 mg tablet 1 tab PO DAILY Qty: 7 0RF bupropion HCl 300 mg tablet extended release 24 hr 1 tab PO DAILY Qty: 7 0RF Discontinued gabapentin 300 mg capsule 1 cap PO TID Discharge Orders: Discharge Order (Routine); Ordered 08/18/22 Ordered By: Rupali Perdomo Diet: Advance to usual diet Activity on Discharge: As tolerated Stand Alone Forms: Patient Portal Discharge page, Community Support Care Plan Goals: Maintain mood and safe behaviors Take medications as directed Practice coping skills Connect with out patient providers Work on maintaining sobriety Health Concerns: Stable mood and behavior Plan of Treatment: Follow up with out patient providers Take medications as directed Work on maintaining sobriety Assessment: non-suicidal, non homicidal, non-psychotic, non manic Discharge Date/Time: 08/18/22 15:20
== END 2022-08-18 15:20 | disposition home or self-care (01) | DRG 753 ==
LOC: HO.ED 22:55 → HO.PM5 08-13 11:05
PROVIDERS: Admitting Provider Psychiatry & Neurology Psychiatry; Emergency Provider Emergency Medicine; Visit Provider Clinical Nurse Specialist Psychiatric/Mental Health, Adult
DX: F31.9 Bipolar disorder, unspecified (principal); R45.851 Suicidal ideations; F11.20 Opioid dependence, uncomplicated; F14.20 Cocaine dependence, uncomplicated; F17.210 Nicotine dependence, cigarettes, uncomplicated; Z20.822 Contact with and (suspected) exposure to COVID-19; Z71.6 Tobacco abuse counseling; Z79.899 Other long term (current) drug therapy
CPT/HCPCS: 36415; 80053; 80061; 80307; 82077; 82607; 82746; 83036; 83735; 84439; 84443; 85025; 87635; 93005; 99285

== ENCOUNTER 2022-10-13 05:39 | Emergency (ER) | payer MEDICAID, OTHER, SELFPAY ==
--- NOTE | ~2022-10-13 | CT_ITS ---
EXAMINATION: CT ABDOMEN AND PELVIS WITH CONTRAST CLINICAL INFORMATION: Diffuse abdominal pain with high white blood cells. COMPARISON: None TECHNIQUE: Multidetector volumetric images were obtained from the superior aspect of the liver through the pubic symphysis following administration 85 mL of Omnipaque 350 intravenous contrast. Sagittal and coronal reformatted images were obtained on the technologist's workstation. Oral contrast: No This CT examination was performed using dose optimization techniques as appropriate, variously including the following: *Automated exposure control *Adjustment of mA and/or kV according to patient size (this includes techniques or standardized protocols for targeted exams where dose is matched to indication/reason for exam; i.e. extremities or head) *Use of iterative reconstruction technique DLP: 487 mGy-cm FINDINGS: LUNG BASES: The visualized lung bases are unremarkable. LIVER, GALLBLADDER, AND BILIARY TREE: Unremarkable. PANCREAS: Unremarkable. SPLEEN: Unremarkable. ADRENAL GLANDS: Unremarkable. KIDNEYS AND URETERS: The kidneys are normal in size, shape, and attenuation. Tiny low-attenuation focus in the lower pole of the left kidney is too small adequately characterize, but demonstrate benign features not requiring follow-up. No hydronephrosis, hydroureter, or calculi seen. No perinephric stranding. BLADDER: Unremarkable. GASTROINTESTINAL TRACT: The stomach, small bowel and appendix are unremarkable. The colon and rectum are unremarkable. ABDOMINAL WALL: No significant hernia is appreciated. LYMPH NODES: No lymphadenopathy. VASCULAR: Unremarkable. PELVIC VISCERA: Unremarkable. OSSEOUS STRUCTURES: Unremarkable. CT/CT abdomen pelvis w IV con IMPRESSION: No acute intra-abdominal/pelvic abnormality to explain the patient's pain. No other significant abnormality.
[2022-10-13 05:53] VITALS: BP 130/83; BP 146/98; PULSE 74; PULSE 85; RESP 12; TEMP 36.7; O2SAT 98; BMI 23.5
--- NOTE | 2022-10-13 06:23 | PC.NURSE ---
Pt a&o, pt is vomiting at this time, pt reports the last time he used was yesterday morning, Reported to SOHA Smith
[2022-10-13 06:46] LABS: MANUAL DIFF FLAG NO
[2022-10-13 06:48] LABS: Basophils Absolute Auto 0.1 X10*3/uL (0.0-0.2); Basophils Percent Auto 0.3 % (0-2); Eosinophils Percent Auto 0.2 % (0-4); Hematocrit 41.6 % (42.0-52.0); Hemoglobin 13.8 g/dl (14.0-18.0); Imm Gran Abs Auto 0.05 X10*3/uL (0.00-0.03); Imm Gran Pct Auto 0.3 % (0.0-0.4); Lymphocytes Absolute Auto 1.4 X10*3/uL (1.2-4.9); Lymphocytes Percent Auto 8.2 % (20-40); Mean Corpuscular HGB Conc 33.2 g/dl (31.0-36.0); Mean Corpuscular Hemoglobin 28.6 pg (27.0-33.0); Mean Corpuscular Volume 86.3 fL (80.0-98.0); Mean Platelet Volume 9.2 fL (9.4-12.4); Monocytes Absolute Auto 0.9 X10*3/uL (0.1-1.2); Monocytes Percent Auto 5.6 % (2-11); Neutrophils Absolute Auto 14.1 x10*3/uL (2.0-8.3); Neutrophils Percent Auto 85.4 % (45-73); Platelet Count 271 X10*3/uL (160-400); Red Blood Count 4.82 X10*6/uL (4.60-5.80); White Blood Count 16.5 X10*3/uL (4.8-10.8)
[2022-10-13 07:11] LABS: Alanine Aminotransferase 14 U/L (0-40); Albumin Level 4.2 g/dL (3.5-5.0); Alkaline Phosphatase 82 U/L (39-117); Anion Gap 15 (12-20); Aspartate Amino Transferase 16 U/L (5-37); Bilirubin Total 0.5 mg/dL (0.0-1.0); Blood Urea Nitrogen 15 mg/dL (9-16); Calcium 9.2 mg/dL (8.4-10.2); Carbon Dioxide 27 mmol/L (22-29); Chloride 104 mmol/L (96-108); Estimated Glomerular Filt Rate > 60; Glucose Random 107 mg/dL (60-115); Lipase 13 U/L (8-78); Sodium 142 mmol/L (135-145); Total Protein 7.1 g/dL (6.5-8.0)
--- NOTE | 2022-10-13 07:26 | ED.ABDPAIN ---
HPI - Abdominal Pain General Chief Complaint: Abdominal Pain Stated Complaint: abd pain with si statements Time Seen by Provider: 10/13/22 06:56 Source: patient and EMS History of Present Illness HPI narrative: Patient with history of opioid use disorder presents after vomiting and abdominal pain which started last night. He denies diarrhea. No other symptoms noted at this time, but patient is poor historian secondary to lethargy Related Data Home Medications Medication Instructions Recorded Confirmed methadone 10 mg tablet 90 mg PO DAILY 08/13/22 08/13/22 Previous Rx's Medication Instructions Recorded aripiprazole 5 mg tablet 1 tab PO DAILY #7 tabs 08/18/22 bupropion HCl 300 mg 24 hr tablet, 1 tab PO DAILY #7 tabs 08/18/22 extended release clonidine HCl 0.1 mg tablet 1 tab PO DAILY #7 tabs 08/18/22 gabapentin 300 mg capsule 600 mg PO QID #28 caps 08/18/22 methylphenidate HCl 36 mg 1 tab PO QAM #7 tabs 08/18/22 tablet,extended release 24 hr (Concerta) oxcarbazepine 300 mg tablet 600 mg PO BEDTIME #7 tabs 08/18/22 Allergies Allergy/AdvReac Type Severity Reaction Status Date / Time No Known Allergies Allergy Verified 08/12/22 20:48 [No Known Allergies*] Review of Systems Review of Systems Limited [facility] Past Medical History Medical History (Updated 10/13/22 @ 10:51 by Eliceo Webster MD) Bipolar disorder Cocaine use disorder, severe, dependence Opioid use disorder, severe, dependence Substance abuse Social History Social History Household Members: None Housing: Homeless Do you presently have visiting nurse or other home services: No Alcohol intake: current Alcohol intake frequency: 3 or more drinks per day Patient Tobacco Use Status: Current everyday Tobacco user Tobacco use type: Cigarette Cigarette Packs Per Day: 1 Cigarettes Per Day: 20.0 Years Smoked: 10 Smoked in Last 30 Days: Yes Substance Use Type: Heroin Advance Directives: No Advance Directives Information Provided: No service: No Sexual orientation: Straight/Heterosexual Physical Exam ED Vital Signs: Vital Signs - 24 hr 10/13/22 05:53 10/13/22 08:00 Temperature 98.0 F 98.8 F Pulse Rate 74 90 Respiratory Rate 12 12 Blood Pressure 130/83 127/65 Pulse Oximetry 98 97 Oxygen Delivery Method Room Air Room Air BMI result Body Mass Index 23.5 Const Other: Patient is somnolent. Vitals are stable Resp Other: Clear and equal bilaterally without wheezes rales or rhonchi Cardio Other: Regular rate and rhythm. No murmurs noted GI Other: Soft, diffusely tender. Mildly distended. Positive guarding Skin Other: Warm pink and dry. No track rodriguez noted. No obvious rash Medical Decision Making Medical Decision Making MDM Narrative: Patient with vomiting, abdominal pain and diffuse tenderness. In the setting of opioid use disorder. Differential diagnosis is extensive. Colitis, pancreatitis, gastroenteritis, gastritis, perforated viscus, constipation, appendicitis, hepatitis, biliary colic. 07:[place] [id number]. CMP is normal including BUN creatinine, LFTs, lipase. IV fluids and IV Zofran ordered. Abdominal CT ordered. 10:49. CT scan is unremarkable. Remainder of labs unremarkable. Lipase and LFTs are normal. He is stable for discharge home as he is feeling much better and eating without difficulty. He declines detox at this time. He states he has outpatient follow-up with methadone treatment and he will call them today to reconnect Lab Data 10/13/22 06:43 10/13/22 06:43 Labs: Lab Results 10/13/22 10/13/22 10/13/22 Range/Units 06:43 06:43 07:50 WBC 16.5 H (4.8-10.8) X10*3/uL RBC 4.82 (4.60-5.80) X10*6/uL Hgb 13.8 L (14.0-18.0) g/dl Hct 41.6 L (42.0-52.0) % MCV 86.3 (80.0-98.0) fL MCH 28.6 (27.0-33.0) pg MCHC 33.2 (31.0-36.0) g/dl RDW 13.0 (11.0-16.0) % Plt Count 271 (160-400) X10*3/uL MPV 9.2 L (9.4-12.4) fL Immature Gran % (Auto) 0.3 (0.0-0.4) % Neut % (Auto) 85.4 H (45-73) % Lymph % (Auto) 8.2 L (20-40) % [place] % (Auto) 5.6 (2-11) % Eos % (Auto) 0.2 (0-4) % Baso % (Auto) 0.3 (0-2) % Lymph # (Auto) 1.4 (1.2-4.9) X10*3/uL [place] # (Auto) 0.9 (0.1-1.2) X10*3/uL Eos # (Auto) 0.0 (0.0-0.4) X10*3/uL Baso # (Auto) 0.1 (0.0-0.2) X10*3/uL Abs Immat Gran (auto) 0.05 H (0.00-0.03) X10*3/uL Absolute Neuts (auto) 14.1 H (2.0-8.3) x10*3/uL Absolute Nucleated RBC 0.000 (0.0-0.012) X10*3/uL Nucleated RBC % (auto) 0.0 (0.0-0.2) /100WBC Sodium 142 (135-145) mmol/L Potassium 4.0 (3.3-5.1) mmol/L Chloride 104 (96-108) mmol/L Carbon Dioxide 27 (22-29) mmol/L Anion Gap 15 (12-20) BUN 15 (9-16) mg/dL Creatinine 0.87 (0.5-1.4) mg/dL Estim Creat Clear Calc 116.0 Estimated GFR > 60 Random Glucose 107 (60-115) mg/dL Lactic Acid 1.5 (0.5-2.0) mmol/L Calcium 9.2 (8.4-10.2) mg/dL Total Bilirubin 0.5 (0.0-1.0) mg/dL AST 16 (5-37) U/L ALT 14 (0-40) U/L Alkaline Phosphatase 82 (39-117) U/L Ammonia (13-55) umol/L Total Protein 7.1 (6.5-8.0) g/dL Albumin 4.2 (3.5-5.0) g/dL Lipase 13 (8-78) U/L Urine Color Urine Appearance Urine pH (5.0-9.0) Ur Specific [place] (1.005-1.025) Urine Protein (Neg-Trace) mg/dL Urine Glucose (UA) (Negative) mg/dL Urine Ketones (Negative) mg/dL Urine Blood (Negative) Urine Nitrite (Negative) Ur Leukocyte Esterase (Negative) Urine Opiates Screen (Not Detect) Urine Fentanyl Screen (Not Detect) Ur Barbiturates Screen (Not Detect) Ur Phencyclidine Scrn (Not Detect) Ur Amphetamines Screen (Not Detect) U Benzodiazepines Scrn (Not Detect) Urine Cocaine Screen (Not Detect) U Marijuana (THC) Screen (Not Detect) COVID-19 (SKYE) (Negative) COVID-19 Clin Com 10/13/22 10/13/22 10/13/22 Range/Units 07:50 07:50 10:10 WBC (4.8-10.8) X10*3/uL RBC (4.60-5.80) X10*6/uL Hgb (14.0-18.0) g/dl Hct (42.0-52.0) % MCV (80.0-98.0) fL MCH (27.0-33.0) pg MCHC (31.0-36.0) g/dl RDW (11.0-16.0) % Plt Count (160-400) X10*3/uL MPV (9.4-12.4) fL Immature Gran % (Auto) (0.0-0.4) % Neut % (Auto) (45-73) % Lymph % (Auto) (20-40) % [place] % (Auto) (2-11) % Eos % (Auto) (0-4) % Baso % (Auto) (0-2) % Lymph # (Auto) (1.2-4.9) X10*3/uL [place] # (Auto) (0.1-1.2) X10*3/uL Eos # (Auto) (0.0-0.4) X10*3/uL Baso # (Auto) (0.0-0.2) X10*3/uL Abs Immat Gran (auto) (0.00-0.03) X10*3/uL Absolute Neuts (auto) (2.0-8.3) x10*3/uL Absolute Nucleated RBC (0.0-0.012) X10*3/uL Nucleated RBC % (auto) (0.0-0.2) /100WBC Sodium (135-145) mmol/L Potassium (3.3-5.1) mmol/L Chloride (96-108) mmol/L Carbon Dioxide (22-29) mmol/L Anion Gap (12-20) BUN (9-16) mg/dL Creatinine (0.5-1.4) mg/dL Estim Creat Clear Calc Estimated GFR Random Glucose (60-115) mg/dL Lactic Acid (0.5-2.0) mmol/L Calcium (8.4-10.2) mg/dL Total Bilirubin (0.0-1.0) mg/dL AST (5-37) U/L ALT (0-40) U/L Alkaline Phosphatase (39-117) U/L Ammonia 29 (13-55) umol/L Total Protein (6.5-8.0) g/dL Albumin (3.5-5.0) g/dL Lipase (8-78) U/L Urine Color Yellow Urine Appearance Clear Urine pH 8.5 (5.0-9.0) Ur Specific [place] >= 1.030 H (1.005-1.025) Urine Protein Negative (Neg-Trace) mg/dL Urine Glucose (UA) Negative (Negative) mg/dL Urine Ketones Negative (Negative) mg/dL Urine Blood Negative (Negative) Urine Nitrite Negative (Negative) Ur Leukocyte Esterase Negative (Negative) Urine Opiates Screen (Not Detect) Urine Fentanyl Screen (Not Detect) Ur Barbiturates Screen (Not Detect) Ur Phencyclidine Scrn (Not Detect) Ur Amphetamines Screen (Not Detect) U Benzodiazepines Scrn (Not Detect) Urine Cocaine Screen (Not Detect) U Marijuana (THC) Screen (Not Detect) COVID-19 (SKYE) Negative (Negative) COVID-19 Clin Com See Note 10/13/22 Range/Units 10:10 WBC (4.8-10.8) X10*3/uL RBC (4.60-5.80) X10*6/uL Hgb (14.0-18.0) g/dl Hct (42.0-52.0) % MCV (80.0-98.0) fL MCH (27.0-33.0) pg MCHC (31.0-36.0) g/dl RDW (11.0-16.0) % Plt Count (160-400) X10*3/uL MPV (9.4-12.4) fL Immature Gran % (Auto) (0.0-0.4) % Neut % (Auto) (45-73) % Lymph % (Auto) (20-40) % [place] % (Auto) (2-11) % Eos % (Auto) (0-4) % Baso % (Auto) (0-2) % Lymph # (Auto) (1.2-4.9) X10*3/uL [place] # (Auto) (0.1-1.2) X10*3/uL Eos # (Auto) (0.0-0.4) X10*3/uL Baso # (Auto) (0.0-0.2) X10*3/uL Abs Immat Gran (auto) (0.00-0.03) X10*3/uL Absolute Neuts (auto) (2.0-8.3) x10*3/uL Absolute Nucleated RBC (0.0-0.012) X10*3/uL Nucleated RBC % (auto) (0.0-0.2) /100WBC Sodium (135-145) mmol/L Potassium (3.3-5.1) mmol/L Chloride (96-108) mmol/L Carbon Dioxide (22-29) mmol/L Anion Gap (12-20) BUN (9-16) mg/dL Creatinine (0.5-1.4) mg/dL Estim Creat Clear Calc Estimated GFR Random Glucose (60-115) mg/dL Lactic Acid (0.5-2.0) mmol/L Calcium (8.4-10.2) mg/dL Total Bilirubin (0.0-1.0) mg/dL AST (5-37) U/L ALT (0-40) U/L Alkaline Phosphatase (39-117) U/L Ammonia (13-55) umol/L Total Protein (6.5-8.0) g/dL Albumin (3.5-5.0) g/dL Lipase (8-78) U/L Urine Color Urine Appearance Urine pH (5.0-9.0) Ur Specific [place] (1.005-1.025) Urine Protein (Neg-Trace) mg/dL Urine Glucose (UA) (Negative) mg/dL Urine Ketones (Negative) mg/dL Urine Blood (Negative) Urine Nitrite (Negative) Ur Leukocyte Esterase (Negative) Urine Opiates Screen Not Detected (Not Detect) Urine Fentanyl Screen POSITIVE H (Not Detect) Ur Barbiturates Screen Not Detected (Not Detect) Ur Phencyclidine Scrn Not Detected (Not Detect) Ur Amphetamines Screen Not Detected (Not Detect) U Benzodiazepines Scrn Not Detected (Not Detect) Urine Cocaine Screen POSITIVE H (Not Detect) U Marijuana (THC) Screen Not Detected (Not Detect) COVID-19 (SKYE) (Negative) COVID-19 Clin Com Medications Administered Discontinued Medications Generic Name Dose Route Start Last Admin Trade Name Freq PRN Reason Stop Dose Admin Sodium Chloride 1,000 mls @ 999 mls/hr 10/13/22 07:15 10/13/22 08:43 Ns IV 10/13/22 08:15 Infused .Q1H1M JAMES Infusion Iohexol 100 ml 10/13/22 08:52 10/13/22 08:53 Iohexol 350 Mg/Ml 100 Ml Infus..Btl IV 10/13/22 08:53 85 ml ONCE ONE Administration Ondansetron HCl 4 mg 10/13/22 07:13 10/13/22 07:41 Ondansetron Hcl 4 Mg/2 Ml Vial IVPUSH 10/13/22 07:14 4 mg ONCE ONE Administration Discharge Plan Discharge Clinical Impression: Opioid use disorder, severe, dependence, Abdominal pain Patient Disposition: Home, Self-Care Instructions: Abdominal Pain (ED), Opioid Use Disorder (ED) Additional Instructions: Follow-up with your treatment plan as discussed. Prescriptions: No Action methadone 10 mg Tablet 90 mg PO DAILY oxcarbazepine 300 mg Tablet 600 mg PO BEDTIME Qty: 7 0RF gabapentin 300 mg Capsule 600 mg PO QID Qty: 28 0RF clonidine HCl 0.1 mg tablet 1 tab PO DAILY Qty: 7 0RF methylphenidate HCl [Concerta] 36 mg tablet extended release 24hr 1 tab PO QAM Qty: 7 0RF aripiprazole 5 mg tablet 1 tab PO DAILY Qty: 7 0RF bupropion HCl 300 mg tablet extended release 24 hr 1 tab PO DAILY Qty: 7 0RF
[2022-10-13] MEDS: 0.9 % Sodium Chloride 1,000 ML 999 ML IV ×2 (07:41→10:50)
[2022-10-13] MEDS: ondansetron HCL 4 MG/2 ML VIAL IVPUSH (07:41)
[2022-10-13 08:00] VITALS: BP 127/65; PULSE 90; RESP 12; TEMP 37.1; O2SAT 97
[2022-10-13 08:04] LABS: Ammonia 29 umol/L (13-55)
[2022-10-13 08:10] LABS: COVID-19 Test Negative (Negative); IDNOW Serial# BCCEAD1C
[2022-10-13 08:35] LABS: Lactic Acid 1.5 mmol/L (0.5-2.0)
[2022-10-13] MEDS: iohexoL 350 MG/ML 100 ML INFUS..BTL IV (08:53)
[2022-10-13 10:30] LABS: Appearance Urine Clear; Color Urine Yellow; Glucose Urine UA Negative (Negative); Leukocyte Esterase Urine Negative (Negative); Nitrite Urine Negative (Negative); PH 8.5 (5.0-9.0); Specific Gravity - Urine >= 1.030 (1.005-1.025); Urine Blood Negative (Negative); Urine Ketones Negative (Negative); Urine Protein Negative (Neg-Trace)
[2022-10-13 10:36] LABS: Amphetamine Screen Urine Not Detected (Not Detect); Barbiturates, Urine Not Detected (Not Detect); Benzodiazepines Screen Urine Not Detected (Not Detect); Cannabinoid Screen Urine Not Detected (Not Detect); Cocaine Screen Urine POSITIVE (Not Detect); Fentanyl, urine POSITIVE (Not Detect); Opiate Screen Urine Not Detected (Not Detect); Phencyclidine Screen Urine Not Detected (Not Detect)
[2022-10-13] MEDS: Lidocaine HCl Viscous 2 % 15 ML SOLUTION PO (10:50)
[2022-10-13] MEDS: Magnesium Hydrox/Alum Hydrox 30 ML ORAL.SUSP PO (10:50)
--- NOTE | 2022-10-13 11:06 | MHC.RECOVRN ---
Met with pt in [facility] after consult placed to CARE Team for opioid use. Pt laying on stretcher, asleep, wakes to voice. Pt appears sedated. Asking for milk and daryl crackers. Pt reports using heroin, 1-2 bags, not often. Pt reports last use was 2 days ago. Pt reports having been going to [facility] in [place], was receiving 95 mg methadone, but has not presented in one week due to transportation. Pt reports currently staying in [place], discussed transfer of care to [facility] or [facility], pt receptive. Pt does not believe abdominal pain/nausea/vomiting to be related to opioid withdrawal. Discussed recovery resources and supports, pt declines at this time. Pt aware that roommate discovered empty heroin bags and will not allow that in her home. Pt continues to decline ATS. Pt encouraged to reach out to t/w if needed. Provider aware.
--- NOTE | 2022-10-13 11:16 | PC.NURSE ---
MAKING SI STATEMENTS WITH PALN TO OVERDOSE, PT IS NOW IN BH3
[2022-10-13] MEDS: methADONE HCl 20 MG/2 ML ORAL.CONC 30 MG PO (11:46)
--- NOTE | 2022-10-13 11:50 | HE.PHANOTE ---
METHADONE VERIFICATION LAST DOSE WAS 95MG [facility] ON [facility]
--- NOTE | 2022-10-13 15:15 | HO.ADDICT_ITS ---
History of Present Illness Date of Service: 10/13/2022 Chief Complaint: abd pain with si statements Reason for Consult: methadone dose titration HPI Narrative: Patient is a 31 yeart old male currently in area of ED following statements of suicidal ideation--initially presented to ED with abdominal pain. He was seen earlier in the day by agile tester, where he declined any recovery resources or referral to ATS (this was prior to SI). Consult requested as patient reports being on methadone 95mg, which was verified with last dose also verified as being administered on November 02, 2022. This pattern chart writer went to meet with patient in room. Patient laying in bed, eyes closed, briefly opened when name called. Unable to participate in interview, however did report that he was not in withdrawal and was not ready for methadone. Reported using 3 bags of heroin daily. Very drowsy. Past Psychiatric History: IP: 5 since 2011 CCS: 1 PHP: 2 OP: Hx of Service Net Review of Systems Constitutional: Reports as per HPI Diagnostics Vital Signs (24Hr): Vital Signs - 24 hr 10/13/22 05:53 10/13/22 08:00 Temperature 98.0 F 98.8 F Pulse Rate 74 90 Respiratory Rate 12 12 Blood Pressure 130/83 127/65 Pulse Oximetry 98 97 Oxygen Delivery Method Room Air Room Air BMI result Body Mass Index 23.5 Labs 10/13/22 06:43 10/13/22 06:43 Labs: Laboratory Results - last 48 hr 10/13/22 10/13/22 10/13/22 06:43 06:43 07:50 WBC 16.5 H RBC 4.82 Hgb 13.8 L Hct 41.6 L MCV 86.3 MCH 28.6 MCHC 33.2 RDW 13.0 Plt Count 271 MPV 9.2 L Immature Gran % (Auto) 0.3 Neut % (Auto) 85.4 H Lymph % (Auto) 8.2 L [place] % (Auto) 5.6 Eos % (Auto) 0.2 Baso % (Auto) 0.3 Lymph # (Auto) 1.4 [place] # (Auto) 0.9 Eos # (Auto) 0.0 Baso # (Auto) 0.1 Abs Immat Gran (auto) 0.05 H Absolute Neuts (auto) 14.1 H Absolute Nucleated RBC 0.000 Nucleated RBC % (auto) 0.0 Sodium 142 Potassium 4.0 Chloride 104 Carbon Dioxide 27 Anion Gap 15 BUN 15 Creatinine 0.87 Estim Creat Clear Calc 116.0 Estimated GFR > 60 Random Glucose 107 Lactic Acid 1.5 Calcium 9.2 Total Bilirubin 0.5 AST 16 ALT 14 Alkaline Phosphatase 82 Ammonia Total Protein 7.1 Albumin 4.2 Lipase 13 Urine Color Urine Appearance Urine pH Ur Specific [place] Urine Protein Urine Glucose (UA) Urine Ketones Urine Blood Urine Nitrite Ur Leukocyte Esterase Urine Opiates Screen Urine Fentanyl Screen Ur Barbiturates Screen Ur Phencyclidine Scrn Ur Amphetamines Screen U Benzodiazepines Scrn Urine Cocaine Screen U Marijuana (THC) Screen COVID-19 (SKYE) COVID-19 Rent Here Com 10/13/22 10/13/22 10/13/22 07:50 07:50 10:10 WBC RBC Hgb Hct MCV MCH MCHC RDW Plt Count MPV Immature Gran % (Auto) Neut % (Auto) Lymph % (Auto) [place] % (Auto) Eos % (Auto) Baso % (Auto) Lymph # (Auto) [place] # (Auto) Eos # (Auto) Baso # (Auto) Abs Immat Gran (auto) Absolute Neuts (auto) Absolute Nucleated RBC Nucleated RBC % (auto) Sodium Potassium Chloride Carbon Dioxide Anion Gap BUN Creatinine Estim Creat Clear Calc Estimated GFR Random Glucose Lactic Acid Calcium Total Bilirubin AST ALT Alkaline Phosphatase Ammonia 29 Total Protein Albumin Lipase Urine Color Yellow Urine Appearance Clear Urine pH 8.5 Ur Specific [place] >= 1.030 H Urine Protein Negative Urine Glucose (UA) Negative Urine Ketones Negative Urine Blood Negative Urine Nitrite Negative Ur Leukocyte Esterase Negative Urine Opiates Screen Urine Fentanyl Screen Ur Barbiturates Screen Ur Phencyclidine Scrn Ur Amphetamines Screen U Benzodiazepines Scrn Urine Cocaine Screen U Marijuana (THC) Screen COVID-19 (SKYE) Negative COVID-19 Rent Here Com See Note 10/13/22 10:10 WBC RBC Hgb Hct MCV MCH MCHC RDW Plt Count MPV Immature Gran % (Auto) Neut % (Auto) Lymph % (Auto) [place] % (Auto) Eos % (Auto) Baso % (Auto) Lymph # (Auto) [place] # (Auto) Eos # (Auto) Baso # (Auto) Abs Immat Gran (auto) Absolute Neuts (auto) Absolute Nucleated RBC Nucleated RBC % (auto) Sodium Potassium Chloride Carbon Dioxide Anion Gap BUN Creatinine Estim Creat Clear Calc Estimated GFR Random Glucose Lactic Acid Calcium Total Bilirubin AST ALT Alkaline Phosphatase Ammonia Total Protein Albumin Lipase Urine Color Urine Appearance Urine pH Ur Specific [place] Urine Protein Urine Glucose (UA) Urine Ketones Urine Blood Urine Nitrite Ur Leukocyte Esterase Urine Opiates Screen Not Detected Urine Fentanyl Screen POSITIVE H Ur Barbiturates Screen Not Detected Ur Phencyclidine Scrn Not Detected Ur Amphetamines Screen Not Detected U Benzodiazepines Scrn Not Detected Urine Cocaine Screen POSITIVE H U Marijuana (THC) Screen Not Detected COVID-19 (SKYE) COVID-19 Clin Com Imaging Radiology Impressions: ITS Impressions Abdomen/Pelvis CT 10/13/22 08:51 IMPRESSION: No acute intra-abdominal/pelvic abnormality to explain the patient's pain. No other significant abnormality. Mental Status Exam Mental Status Exam Level of Consciousness: Drowsy Medications Allergies Allergies Allergy/AdvReac Type Severity Reaction Status Date / Time No Known Allergies Allergy Verified 08/12/22 20:48 [No Known Allergies*] Assessment & Plan Assessment & Plan (1) Opioid use disorder, severe, dependence: Status: Acute Code(s): F11.20 - Opioid dependence, uncomplicated Assessment and Plan: * not appropriate to adminsiter methadone at this time due to level of sedation * when patient is more awake, and alert, methadone can be restarted at 50mg Total time managing care of this patient today _15___ minutes. PMFSH Past Medical History Medical History (Updated 10/13/22 @ 10:51 by Eliceo Webster MD) Bipolar disorder Cocaine use disorder, severe, dependence Opioid use disorder, severe, dependence Substance abuse Social History Social History Household Members: None Housing: Homeless Do you presently have visiting nurse or other home services: No Alcohol intake: current Alcohol intake frequency: 3 or more drinks per day Patient Tobacco Use Status: Current everyday Tobacco user Tobacco use type: Cigarette Cigarette Packs Per Day: 1 Cigarettes Per Day: 20.0 Years Smoked: 10 Smoked in Last 30 Days: Yes Substance Use Type: Heroin Advance Directives: No Advance Directives Information Provided: No Healthcare Proxy: No Guardian: No service: No Sexual orientation: Straight/Heterosexual
--- NOTE | 2022-10-13 17:33 | PC.NURSE ---
Pt resting in bed quietly, calm and cooperative. Requested milk and daryl crackers. VSS, will CTM.
[2022-10-14 01:33] VITALS: BP 117/68; PULSE 78; RESP 16; TEMP 36.6; O2SAT 98
--- NOTE | 2022-10-14 05:11 | PC.NURSE ---
Patient slept through the night, no distress observed/reported, behavior non concerning, VSS, med rec completed/pending provider's approval, patient was cleared by care team and referred to recovery team, patient refused detox help at this time, patient is now ready to be discharged/patient requested to allow him stay overnight because he is homeless and agreed to discharge in the morning, VSS, will continue to monitor.
[2022-10-14 08:46] VITALS: BP 121/57; PULSE 76; RESP 16; TEMP 36.8; O2SAT 97
--- NOTE | 2022-10-14 10:27 | MHC.CARE ---
Pt was cleared by CARE team and referral was made to recovery team, Pt is agreeable to detox referral.
--- NOTE | 2022-10-14 11:58 | MHC.RECOVRN ---
This junior copywriter spoke w/ patient, patient reports using a few bags heroin daily IN for past year. 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 Patient reports no hx of overdose, no hx of accessing treatment. This junior copywriter reviewed detox call list, provided instruction on how to follow up from the community. This junior copywriter provided patient with bus passes, informed patient that [facility] confirmed has male detox beds open. Patient encouraged to walk in at [facility] for detox placement. [facility] contact info and address provided. Patient verbalized understanding.
== END 2022-10-14 11:33 | disposition home or self-care (01) ==
PROVIDERS: Emergency Provider Emergency Medicine
DX: F11.20 Opioid dependence, uncomplicated (principal); R40.0 Somnolence; R10.9 Unspecified abdominal pain; R45.851 Suicidal ideations; Z20.822 Contact with and (suspected) exposure to COVID-19; F31.9 Bipolar disorder, unspecified; F14.20 Cocaine dependence, uncomplicated; F17.210 Nicotine dependence, cigarettes, uncomplicated; Z79.899 Other long term (current) drug therapy
CPT/HCPCS: 36415; 74177; 80053; 80307; 81003; 82140; 83605; 83690; 85025; 87040; 87635; 96361; 96374; 99285; J2405; Q9967; S9485

== ENCOUNTER 2024-02-28 10:12 | Emergency (ER) | payer MEDICAID, SELFPAY ==
--- NOTE | ~2024-02-28 | XR_ITS ---
EXAMINATION: XR LUMBOSACRAL SPINE CLINICAL INFORMATION: Midline lumbar pain COMPARISON: 01/29/2012 TECHNIQUE: Three views of the lumbosacral spine. FINDINGS: The vertebral bodies and posterior elements are normal. The disc spaces are preserved and the vertebral alignment is normal. The paraspinal soft tissues are normal. XR/XR lumbar spine 2-3V IMPRESSION: Unremarkable examination.
--- NOTE | ~2024-02-28 | XR_ITS ---
EXAMINATION: XR CHEST CLINICAL INFORMATION: Thoracic pain COMPARISON: 02/13/2018 TECHNIQUE: 2 views of the chest were obtained. FINDINGS: No significant abnormality is noted involving the heart, lungs, mediastinum, bony thorax or soft tissues. XR/XR chest 2V IMPRESSION: Unremarkable examination.
[2024-02-28 10:18] VITALS: BP 114/76; PULSE 101; RESP 18; TEMP 36.9; O2SAT 94; BMI 27.5
--- NOTE | 2024-02-28 11:47 | ED.BACK ---
HPI - Back Pain/Injury General Chief Complaint: Back Pain/Injury Stated Complaint: sharp pain in spine Time Seen by Provider: 02/28/24 11:47 Source: patient Mode of arrival: ambulatory Limitations: no limitations History of Present Illness ED Provider: QING GARVEY PA-C HPI Narrative: 33 year old male with pmhx significant for bipolar disorder and polysubstance use presents to the ED today for evaluation of back pain x1 day. Reports taking a deep breath yesterday and felt a pop in his mid-back. Since this time reports constant back pain worse with movement/ deep breathing. Denies IV drug use. Denies fever, chills, neck pain, chest pain, palpitations, SOB, bowel or bladder incontinence or retention, numbness/tingling/weakness in the lower extremities, dysuria, hematuria, saddle anesthesia. Related Data Home Medications ?Medication ?Instructions ?Recorded ?Confirmed methadone 10 mg tablet 95 mg PO DAILY 08/13/22 10/13/22 Previous Rx's ?Medication ?Instructions ?Recorded aripiprazole 5 mg tablet 1 tab PO DAILY #7 tabs 08/18/22 bupropion HCl 300 mg 24 hr tablet, 1 tab PO DAILY #7 tabs 08/18/22 extended release clonidine HCl 0.1 mg tablet 1 tab PO DAILY #7 tabs 08/18/22 gabapentin 300 mg capsule 600 mg (2 x 300 mg) PO QID #28 caps 08/18/22 methylphenidate HCl 36 mg 1 tab PO QAM #7 tabs 08/18/22 tablet,extended release 24 hr (Concerta) cyclobenzaprine 5 mg tablet 5 mg PO Q8H #5 tabs 02/28/24 lidocaine 5 % topical patch 1 patch topical DAILY #15 ea 02/28/24 (Lidoderm) naproxen 500 mg tablet 500 mg PO Q8-12H PRN pain (scale 02/28/24 score 1-3) #20 tabs Allergies Allergy/AdvReac Type Severity Reaction Status Date / Time No Known Allergies Allergy Verified 02/28/24 10:23 [No Known Allergies*] Review of Systems Review of Systems: Constitutional: No fever, chills, fatigue, night sweats, weight changes ENT/Mouth: No ear pain, hearing loss, nasal congestion, sinus pain, rhinorrhea, sore throat Eyes: No eye pain, swelling, redness, vision changes, discharge Cardio: No chest pain, palpitations, NAIDU, orthopnea, peripheral edema Pulm: No SOB, cough, sputum, wheezing, dyspnea, hemoptysis GI: No nausea, vomiting, hematemesis, abdominal pain, diarrhea, constipation, hematochezia, melena : No irregular bleeding, dysuria, frequency, urgency, hesitancy, hematuria, flank pain, urinary flow changes, urinary incontinence or retention MSK: +back pain, No neck pain, joint pain, myalgias Skin: No lesions, rashes Neuro: No weakness, numbness, paresthesias, LOC, dizziness, headache All other systems reviewed and are negative. [facility]LY [facility] Past Medical History Attestation statement: The following information was validated with the patient. Source: old records reviewed and nursing notes reviewed Medical History Cocaine use disorder, severe, dependence Opioid use disorder, severe, dependence Bipolar disorder Substance abuse Social History Social History Household Members: None Housing: Homeless Do you presently have visiting nurse or other home services: No Alcohol intake: current Alcohol intake frequency: 3 or more drinks per day Patient Tobacco Use Status: Current everyday Tobacco user Tobacco use type: Cigarette Cigarette Packs Per Day: 1 Cigarettes Per Day: 20.0 Years Smoked: 10 Substance Use Type: Heroin Advance Directives: No Do you have a plan to hurt others: No Plan service: No Sexual orientation: Straight/Heterosexual Physical Exam Vital Signs: Vital Signs: Last Vital Signs Temp 97.8 F 02/28/24 14:19 Pulse 62 02/28/24 14:19 Resp 12 02/28/24 14:19 BP 107/67 02/28/24 14:19 Pulse Ox 97 02/28/24 14:19 O2 Del Method Room Air 02/28/24 14:19 BMI result Body Mass Index 27.5 Vital signs stable, afebrile Const: General: cooperative, healthy appearing, comfortable, no acute distress, alert, awake and Physically active Orientation/consciousness: patient oriented x3 HEENT: Head: Yes normal to inspection, Yes normocephalic and Yes atraumatic Eyes: General: appearance normal, both eyes and all related structures Pupils: Equal, round and reactive pupils present EOM: EOMs intact bilaterally Neck: Other: + no cervical midline spinous tenderness or step-off deformity. Neck: Yes normal visual inspection, Yes full ROM and Yes no meningeal signs Resp: Effort & Inspection: normal respiratory effort Auscultation: clear to auscultation bilaterally Cardio: Rate: regular rate Rhythm: regular rhythm GI: Inspection: Yes normal to inspection Palpation (GI): Soft to palpation and nontender : General: Yes no CVA tenderness Back/Spine/Pelvis: Other: No midline spinous tenderness. No paraspinal muscle tenderness. No step off deformity. Back: no CVA tenderness Neuro: Other: Strength 5/5 intact throughout.? No saddle anesthesia.? Sensation intact to light touch.? Neurovascular intact distally.? General: patient oriented x3, gait normal and no meningeal signs Cranial nerves: Yes Equal, round and reactive pupils present Gait exam (Neuro): Normal gait present Course Course Course Narrative: 1355-- CBC with slight leukocytosis of unknown significace, no left shift. h&h stable, around baseline when compared to priors. chemistry without acute electrolyte abnormality requiring intervention. urine without infection/ blood. no UTI. utox positive for methadone, fentanyl, and cocaine, otherwise negative. CXR unrearkable. xr lumbar spine unremarkable. > on re-eval, patient reports improvement with medications. suspicion for msk strain. Patient has remained stable throughout ED visit today. Discussed worrisome signs and symptoms and when to return to the ED. All questions answered at this time. Patient is agreeable with disposition and stable for discharge. Medications Administered Discontinued Medications Generic Name Dose Route Start Last Admin Trade Name Mitchell PRN Reason Stop Dose Admin Ketorolac Tromethamine 30 mg 02/28/24 12:03 02/28/24 13:11 Ketorolac Tromethamine 30 Mg/Ml Vial IM 02/28/24 12:04 30 mg ONCE ONE Administration Lidocaine 1 patch 02/28/24 12:03 02/28/24 13:10 Lidocaine 4 % Patch Adh..Patch TRANSDERMA 02/28/24 12:04 1 patch ONCE ONE Administration Protocol Medical Decision Making Medical Decision Making MDM Narrative: 33 year old male with pmhx significant for bipolar disorder and polysubstance use presents to the ED today for evaluation of back pain x1 day. vss. he is nontoxic appearing and in NAD. No midline spinous tenderness or step off deformity. No paraspinal muscle tenderness. Strength 5/5 intact throughout.? No saddle anesthesia.? Sensation intact to light touch.? Neurovascular intact distally.?ambulating with steady gait. Differential diagnosis includes MSK sprain/strain, fracture, subluxation, disc herniation, sciatica. Unlikely cord compression, cauda equina, Guillain-[place], epidural abscess. Plan for imaging, pain control, and re-evaluation. Differential Diagnosis Differential Diagnoses: The differential diagnosis associated with the presentation includes as above Admission/Observation Not indicated. Lab Data MDM Lab Attestation statement: I reviewed the patient's lab results. as above. 02/28/24 12:23 02/28/24 12:23 Labs: Lab Results 02/28/24 02/28/24 Range/Units 12:23 12:54 WBC 12.3 H (4.8-10.8) X10*3/uL RBC 4.73 (4.60-5.80) X10*6/uL Hgb 13.9 L (14.0-18.0) g/dl Hct 40.1 L (42.0-52.0) % MCV 84.8 (80.0-98.0) fL MCH 29.4 (27.0-33.0) pg MCHC 34.7 (31.0-36.0) g/dl RDW 12.5 (11.0-16.0) % Plt Count 288 (160-400) X10*3/uL MPV 8.9 L (9.4-12.4) fL Immature Gran % (Auto) 0.5 H (0.0-0.4) % Neut % (Auto) 76.5 H (45-73) % Lymph % (Auto) 16.1 L (20-40) % [place] % (Auto) 6.4 (2-11) % Eos % (Auto) 0.2 (0-4) % Baso % (Auto) 0.3 (0-2) % Lymph # (Auto) 2.0 (1.2-4.9) X10*3/uL [place] # (Auto) 0.8 (0.1-1.2) X10*3/uL Eos # (Auto) 0.0 (0.0-0.4) X10*3/uL Baso # (Auto) 0.0 (0.0-0.2) X10*3/uL Abs Immat Gran (auto) 0.06 H (0.00-0.03) X10*3/uL Absolute Neuts (auto) 9.4 H (2.0-8.3) x10*3/uL Absolute Nucleated RBC 0.000 (0.0-0.012) X10*3/uL Nucleated RBC % (auto) 0.0 (0.0-0.2) /100WBC Sodium 137 (135-145) mmol/L Potassium 4.4 (3.3-5.1) mmol/L Chloride 103 (96-108) mmol/L Carbon Dioxide 25 (22-29) mmol/L Anion Gap 13 (12-20) BUN 17 H (9-16) mg/dL Creatinine 0.87 (0.5-1.4) mg/dL Estim Creat Clear Calc 115.2 Estimated GFR > 60 Random Glucose 114 (60-115) mg/dL Calcium 9.6 (8.4-10.2) mg/dL Magnesium 2.0 (1.6-2.6) mg/dL Total Bilirubin 0.7 (0.0-1.0) mg/dL AST 22 (5-37) U/L ALT 22 (0-40) U/L Alkaline Phosphatase 85 (39-117) U/L Total Protein 7.4 (6.5-8.0) g/dL Albumin 4.5 (3.5-5.0) g/dL Lipase 8 (8-78) U/L Urine Color Dark Yellow Urine Appearance Clear Urine pH 6.0 (5.0-9.0) Ur Specific [place] 1.025 (1.005-1.025) Urine Protein Negative (Neg-Trace) mg/dL Urine Glucose (UA) Negative (Negative) mg/dL Urine Ketones Trace (Negative) mg/dL Urine Blood Negative (Negative) Urine Nitrite Negative (Negative) Ur Leukocyte Esterase Negative (Negative) Urine Opiates Screen Not Detected (Not Detect) Ur Buprenorphine Scrn Not Detected (Not Detect) ng/mL Ur Oxycodone Screen Not Detected (Not Detect) ng/mL Urine Methadone Screen Positive H (Not Detect) ng/mL Urine Fentanyl Screen POSITIVE H (Not Detect) Ur Barbiturates Screen Not Detected (Not Detect) Ur Phencyclidine Scrn Not Detected (Not Detect) Ur Amphetamines Screen Not Detected (Not Detect) U Benzodiazepines Scrn Not Detected (Not Detect) Urine Cocaine Screen POSITIVE H (Not Detect) U Marijuana (THC) Screen Not Detected (Not Detect) Independent Interpretation I performed an independent interpretation of an: Plain X-Ray Interpretation: XR lumbar spine without acute fracture, agree with radiologist's interpretation. CXR without evidence of pneumothorax, agree with radiologist's interpretation. Radiology Impression Discussion of test interpretation with radiology: I have reviewed the radiologist's reading. Radiologist Impression: EXAMINATION: XR CHEST CLINICAL INFORMATION: Thoracic pain COMPARISON: 02/13/2018 TECHNIQUE: 2 views of the chest were obtained. FINDINGS: No significant abnormality is noted involving the heart, lungs, mediastinum, bony thorax or soft tissues. XR/XR chest 2V IMPRESSION: Unremarkable examination. EXAMINATION: XR LUMBOSACRAL SPINE CLINICAL INFORMATION: Midline lumbar pain COMPARISON: 01/29/2012 TECHNIQUE: Three views of the lumbosacral spine. FINDINGS: The vertebral bodies and posterior elements are normal. The disc spaces are preserved and the vertebral alignment is normal. The paraspinal soft tissues are normal. XR/XR lumbar spine 2-3V IMPRESSION: Unremarkable examination. External Record Review External record reviewed: Inpatient record Prescription Management I considered prescription management with: Pain Medication Social Determinants Patient?s care significantly limited by Social Determinants of Health including: Other Social Determinant of Health Critical Care Time Critical Care Time Critical Care Time: No Discharge Plan Discharge Clinical Impression: Back pain Patient Disposition: Home, Self-Care Instructions: Back Pain (ED) Additional Instructions: Your blood work today is reassuring. Your urine is negative for infection. The xrays of your chest and back are normal. Your pain is likely musculoskeletal. Avoid bending, lifting, or twisting. Use ice several times per day for 20 minutes at a time for the next 48 hours and then change to heat. Flexeril is a muscle relaxer. Take this at night as it makes you drowsy. Do not drive, drink alcohol, or operate machinery while taking it. Naproxen is an anti-inflammatory / pain medication. Take with food. Do not take this with Ibuprofen. Lidoderm patches are numbing patches. Apply to painful areas. In addition you may take Tylenol at home. Follow up with your primary care provider as needed If your pain worsens, if you develop new numbness, tingling, weakness, loss of bowel or bladder function call 911 or return to the ER immediately for evaluation. Prescriptions: New naproxen 500 mg tablet 500 mg PO Q8-12H PRN (Reason: pain (scale score 1-3)) Qty: 20 0RF lidocaine [Lidoderm] 5 % adhesive patch,medicated 1 patch topical DAILY Qty: 15 0RF Rx Instructions: leave on most painful area for up to 12 hrs cyclobenzaprine 5 mg tablet 5 mg PO Q8H Qty: 5 0RF No Action methadone 10 mg Tablet 95 mg PO DAILY gabapentin 300 mg Capsule 600 mg PO QID Qty: 28 0RF clonidine HCl 0.1 mg tablet 1 tab PO DAILY Qty: 7 0RF methylphenidate HCl [Concerta] 36 mg tablet extended release 24hr 1 tab PO QAM Qty: 7 0RF aripiprazole 5 mg tablet 1 tab PO DAILY Qty: 7 0RF bupropion HCl 300 mg tablet extended release 24 hr 1 tab PO DAILY Qty: 7 0RF Interventions: ED Discharge Assessment Last Done: 02/28/24 14:19 Discharge Date/Time: 02/28/24 14:20 Print Language: Bengali
[2024-02-28 12:27] LABS: MANUAL DIFF FLAG NO
[2024-02-28 12:28] LABS: Basophils Percent Auto 0.3 % (0-2); Eosinophils Percent Auto 0.2 % (0-4); Hematocrit 40.1 % (42.0-52.0); Hemoglobin 13.9 g/dl (14.0-18.0); Imm Gran Abs Auto 0.06 X10*3/uL (0.00-0.03); Imm Gran Pct Auto 0.5 % (0.0-0.4); Lymphocytes Percent Auto 16.1 % (20-40); Mean Corpuscular HGB Conc 34.7 g/dl (31.0-36.0); Mean Corpuscular Hemoglobin 29.4 pg (27.0-33.0); Mean Corpuscular Volume 84.8 fL (80.0-98.0); Mean Platelet Volume 8.9 fL (9.4-12.4); Monocytes Absolute Auto 0.8 X10*3/uL (0.1-1.2); Monocytes Percent Auto 6.4 % (2-11); Neutrophils Absolute Auto 9.4 x10*3/uL (2.0-8.3); Neutrophils Percent Auto 76.5 % (45-73); Platelet Count 288 X10*3/uL (160-400); Red Blood Count 4.73 X10*6/uL (4.60-5.80); Red Cell Distribution Width 12.5 % (11.0-16.0); White Blood Count 12.3 X10*3/uL (4.8-10.8)
[2024-02-28 12:45] LABS: Alanine Aminotransferase 22 U/L (0-40); Albumin Level 4.5 g/dL (3.5-5.0); Alkaline Phosphatase 85 U/L (39-117); Anion Gap 13 (12-20); Aspartate Amino Transferase 22 U/L (5-37); Bilirubin Total 0.7 mg/dL (0.0-1.0); Blood Urea Nitrogen 17 mg/dL (9-16); Calcium 9.6 mg/dL (8.4-10.2); Carbon Dioxide 25 mmol/L (22-29); Chloride 103 mmol/L (96-108); Creatinine Clr Calc Pharmacy 115.2; Estimated Glomerular Filt Rate > 60; Glucose Random 114 mg/dL (60-115); Lipase 8 U/L (8-78); Potassium 4.4 mmol/L (3.3-5.1); Sodium 137 mmol/L (135-145); Total Protein 7.4 g/dL (6.5-8.0)
[2024-02-28 13:02] LABS: Appearance Urine Clear; Color Urine Dark Yellow; Glucose Urine UA Negative (Negative); Leukocyte Esterase Urine Negative (Negative); Nitrite Urine Negative (Negative); Specific Gravity - Urine 1.025 (1.005-1.025); Urine Blood Negative (Negative); Urine Ketones Trace mg/dL (Negative); Urine Protein Negative (Neg-Trace)
[2024-02-28] MEDS: Lidocaine 4 % Patch ADH..PATCH 1 PATCH TRANSDERMA (13:10)
[2024-02-28 13:11] LABS: Amphetamine Screen Urine Not Detected (Not Detect); Barbiturates, Urine Not Detected (Not Detect); Benzodiazepines Screen Urine Not Detected (Not Detect); Buprenorphine Scr Not Detected (Not Detect); Cannabinoid Screen Urine Not Detected (Not Detect); Cocaine Screen Urine POSITIVE (Not Detect); Fentanyl, urine POSITIVE (Not Detect); Methadone Screen, Urine Positive (Not Detect); Opiate Screen Urine Not Detected (Not Detect); Oxycodone Screen Urine Not Detected (Not Detect); Phencyclidine Screen Urine Not Detected (Not Detect)
[2024-02-28] MEDS: Ketorolac Tromethamine 30 MG/ML VIAL IM (13:11)
[2024-02-28 13:38] VITALS: BP 107/67; PULSE 62; RESP 12; TEMP 36.6; O2SAT 97
[2024-02-28 14:19] VITALS: BP 107/67; PULSE 62; RESP 12; TEMP 36.6; O2SAT 97
--- NOTE | 2024-02-28 14:20 | PC.NURSE ---
alert speech clear, steady gait, skin wpd, nad
== END 2024-02-28 14:20 | disposition home or self-care (01) ==
PROVIDERS: Physician Assistant Medical; Emergency Provider Student in an Organized Health Care Education/Training Program
DX: M54.50 Low back pain, unspecified (principal); R07.89 Other chest pain; Z79.899 Other long term (current) drug therapy
CPT/HCPCS: 36415; 71046; 72100; 80053; 80307; 81003; 83690; 83735; 85025; 96372; 99284; J1885

== ENCOUNTER 2024-07-06 13:47 | Emergency (ER) | payer MEDICAID, SELFPAY ==
--- NOTE | ~2024-07-06 | XR_ITS ---
EXAMINATION: XR CHEST CLINICAL INFORMATION: pain COMPARISON: None available. TECHNIQUE: 2 views of the chest were obtained. FINDINGS: No focal consolidation, pulmonary edema, or pleural effusion. Stable cardiomediastinal silhouette. XR/XR chest 2V IMPRESSION: No acute cardiopulmonary findings. Electronically signed by: Feng Leslie MD 07/06/2024 04:13 PM [facility]
--- NOTE | 2024-07-06 13:49 | ECG_ITS ---
Test Reason : CP Blood Pressure : / mmHG Vent. Rate : 125 BPM Atrial Rate : 125 BPM P-R Int : 146 ms QRS Dur : 078 ms QT Int : 320 ms P-R-T Axes : 035 037 -11 degrees QTc Int : 461 ms Sinus tachycardia Nonspecific ST and T wave abnormality Abnormal ECG When compared with ECG of 13-AUG-2022 09:50, DC interval has increased Vent. rate has increased BY [address] now depressed in Anterolateral leads Referred By: Generic ED Physician Electronically Signed By:DENISE ZARCO MD
--- NOTE | 2024-07-06 14:03 | ED_ITS ---
HPI - General Adult General Chief complaint: Chest Pain Stated complaint: chest pain sob thightness in throat Time Seen by Provider: 07/06/24 15:13 Source: patient, RN notes reviewed and old records reviewed Mode of arrival: ambulatory History of Present Illness ED Provider: Pat Ramos PA-C HPI narrative: 33-year-old male with a past medical history of substance use disorder, bipolar, presenting to the ED complaining of on radiating intermittent chest pain and SOB since yesterday with associated dry cough. Also reports sensation of lump in throat x months, states he feels lump when swallows. Admits to substance use, denies IVDA, reports snorting drugs. Denies fever, chills, travel, history of clots, sick contacts, abdominal pain, pedal edema Related Data Home Medications ?Medication ?Instructions ?Recorded ?Confirmed methadone 10 mg tablet 95 mg PO DAILY 08/13/22 10/13/22 Previous Rx's ?Medication ?Instructions ?Recorded aripiprazole 5 mg tablet 1 tab PO DAILY #7 tabs 08/18/22 bupropion HCl 300 mg 24 hr tablet, 1 tab PO DAILY #7 tabs 08/18/22 extended release clonidine HCl 0.1 mg tablet 1 tab PO DAILY #7 tabs 08/18/22 gabapentin 300 mg capsule 600 mg (2 x 300 mg) PO QID #28 caps 08/18/22 methylphenidate HCl 36 mg 1 tab PO QAM #7 tabs 08/18/22 tablet,extended release 24 hr (Concerta) cyclobenzaprine 5 mg tablet 5 mg PO Q8H #5 tabs 02/28/24 lidocaine 5 % topical patch 1 patch topical DAILY #15 ea 02/28/24 (Lidoderm) naproxen 500 mg tablet 500 mg PO Q8-12H PRN pain (scale 02/28/24 score 1-3) #20 tabs Allergies Allergy/AdvReac Type Severity Reaction Status Date / Time No Known Allergies Allergy Verified 07/06/24 14:06 [No Known Allergies*] Review of Systems 2 Review of Systems: Yes all other systems are reviewed and are negative Constitutional: Constitutional: Reports as per [facility] Past Medical History Attestation statement: The following information was validated with the patient. Source: old records reviewed Medical History Cocaine use disorder, severe, dependence Opioid use disorder, severe, dependence Bipolar disorder Substance abuse Social History Social History Household Members: None Housing: Homeless Do you presently have visiting nurse or other home services: No Alcohol intake: current Alcohol intake frequency: 3 or more drinks per day Patient Tobacco Use Status: Current everyday Tobacco user Tobacco use type: Cigarette Cigarette Packs Per Day: 1 Cigarettes Per Day: 20.0 Years Smoked: 10 Substance Use Type: Heroin Advance Directives: No Advance Directives Information Provided: Yes Do you have a plan to hurt others: No Plan service: No Sexual orientation: Straight/Heterosexual Physical Exam ED Vital Signs: Vital Signs - 24 hr 07/06/24 14:05 07/06/24 15:15 07/06/24 19:07 Temperature 98.2 F 97.9 F 98.1 F Pulse Rate 126 H 104 H 88 Respiratory Rate 18 18 18 Blood Pressure 164/100 H 134/83 127/79 Pulse Oximetry 99 98 96 Oxygen Delivery Method Room Air Room Air Room Air BMI result Body Mass Index 28.2 Const Other: appears under the influence General: cooperative and no acute distress Orientation/consciousness: patient oriented x3 Limitations: no limitations HENMT Head: Yes normal to inspection and Yes atraumatic Ears: hearing grossly normal bilaterally General nose exam: Normal external nose present Face and sinus: Yes normal facial exam Mouth: Normal oral and palatal mucosa present and no drooling Throat: Yes posterior oropharynx normal, Yes tonsils normal, Yes uvula midline, No peritonsillar mass, No uvula laterally displaced and No uvular edema Eyes General: appearance normal, both eyes and all related structures EOM: EOMs intact bilaterally Neck Neck: Yes normal visual inspection and Yes no meningeal signs Resp Effort & Inspection: normal respiratory effort and no respiratory distress Auscultation: clear to auscultation bilaterally, no crackles, no rales, no rhonchi and no wheezes Cardio Rate: regular rate Heart sounds: S1 normal heart sound present and S2 normal heart sound present GI Inspection: Yes normal to inspection Palpation (GI): Soft to palpation, nontender, no guarding and not rigid Skin Rashes: no rashes Wounds: no wounds Neuro General: patient oriented x3, tone normal and no meningeal signs Cranial nerves: Yes CN's II-XII intact bilaterally Gait exam (Neuro): Normal gait present Extrem General: Yes normal to inspection and Yes no pedal edema Course Course Course Narrative: RME, this is a rapid medical exam performed by Dwayne Lieberman please refer to primary provider for complete H&P- 33 year old male presents for evaluation of chest pain and palpitations. the patient also reports he has a lump neck that he feels like has been growing for the last few months. Plan for labs, EKG has been done which shows sinus tachycardia and lateral ST depressions. the patient has a history of substance abuse, he reports he has not use cocaine in the last few weeks to months - Initial troponin 4.3 > will obtain 3 hour repeat - TSH elevated to 10.7, free T4 WNL. - Tox screen positive for opiates, methadone, fentanyl, benzos, cocaine XR chest 2V IMPRESSION: No acute cardiopulmonary findings. -1854- repeat troponin 45.3 > will obtain additional 3 hour repeat suspect from cocaine use.. Patient reports continued chest discomfort, now with increasing anxiety. -2035-- 3rd troponin 40.4, no rise, HI unlikely Results discussed with patient including worrisome signs and symptoms and strict return precautions, and when to return to the emergency department. They verbalized understanding and feel safe for discharge at this time. Medications Administered Discontinued Medications Generic Name Dose Route Start Last Admin Trade Name Fordq PRN Reason Stop Dose Admin Clonazepam 1 mg 07/06/24 19:22 07/06/24 19:39 Clonazepam 1 Mg Tablet PO 07/06/24 19:23 1 mg ONCE ONE Administration Sodium Chloride 1,000 mls @ 999 mls/hr 07/06/24 15:30 07/06/24 15:30 Ns IV 07/06/24 16:30 999 mls/hr .Q1H1M [facility] Administration Medical Decision Making Medical Decision Making MDM Narrative: 33-year-old male with a past medical history of substance use disorder, bipolar, presenting to the ED complaining of on radiating intermittent chest pain and SOB since yesterday with associated dry cough. Also reports sensation of lump in throat x months, states he feels lump when swallows. on exam initially hypertensive and tachycardic, appears under the influence, nontoxic appearing, lungs CTA, oropharynx WNL, no appreciable lump, handling secretions, no drooling. Concern for substance abuse vs ACS vs anxiety vs viral illness vs pneumonia. Lower suspicion for PE/ DVT at this time. No evidence of [employer] / retropharyngeal abscess. Plan: EKG, labs, CXR, viral studies Please refer to course for remaining clinical decision making, interpretation of labs/imaging results, and discussions with consultants and/or family members. Differential Diagnosis Differential Diagnoses: The differential diagnosis associated with the presentation includes As above Admission/Observation Consideration of admission/observation: Escalation of care including admission/observation considered Lab Data MDM Lab Attestation statement: I reviewed the patient's lab results. 07/06/24 14:15 07/06/24 14:15 Labs: Lab Results 07/06/24 07/06/24 07/06/24 Range/Units 14:15 14:16 16:26 WBC 7.6 (4.8-10.8) X10*3/uL RBC 4.52 L (4.60-5.80) X10*6/uL Hgb 13.1 L (14.0-18.0) g/dl Hct 37.6 L (42.0-52.0) % MCV 83.2 (80.0-98.0) fL MCH 29.0 (27.0-33.0) pg MCHC 34.8 (31.0-36.0) g/dl RDW 12.0 (11.0-16.0) % Plt Count 252 (160-400) X10*3/uL MPV 9.1 L (9.4-12.4) fL Immature Gran % (Auto) 0.3 (0.0-0.4) % Neut % (Auto) 54.5 (45-73) % Lymph % (Auto) 34.9 (20-40) % Marion % (Auto) 8.6 (2-11) % Eos % (Auto) 1.3 (0-4) % Baso % (Auto) 0.4 (0-2) % Lymph # (Auto) 2.6 (1.2-4.9) X10*3/uL Marion # (Auto) 0.7 (0.1-1.2) X10*3/uL Eos # (Auto) 0.1 (0.0-0.4) X10*3/uL Baso # (Auto) 0.0 (0.0-0.2) X10*3/uL Abs Immat Gran (auto) 0.02 (0.00-0.03) X10*3/uL Absolute Neuts (auto) 4.1 (2.0-8.3) x10*3/uL Absolute Nucleated RBC 0.000 (0.0-0.012) X10*3/uL Nucleated RBC % (auto) 0.0 (0.0-0.2) /100WBC PT 10.4 L (10.9-12.4) SEC INR 0.9 (0.9-1.1) Sodium 138 (135-145) mmol/L Potassium 3.6 (3.3-5.1) mmol/L Chloride 105 (96-108) mmol/L Carbon Dioxide 25 (22-29) mmol/L Anion Gap 12 (12-20) BUN 15 (9-16) mg/dL Creatinine 0.82 (0.5-1.4) mg/dL Estim Creat Clear Calc 128.1 Estimated GFR > 60 Random Glucose 106 (60-115) mg/dL Calcium 9.4 (8.4-10.2) mg/dL Magnesium 1.8 (1.6-2.6) mg/dL Total Bilirubin 0.3 (0.0-1.0) mg/dL AST 37 (5-37) U/L ALT 35 (0-40) U/L Alkaline Phosphatase 76 (39-117) U/L Troponin I High Sens 4.3 (<3.5-35.0) ng/L Total Protein 7.2 (6.5-8.0) g/dL Albumin 4.3 (3.5-5.0) g/dL Lipase 8 (8-78) U/L TSH 10.71 H (0.32-4.0) uIU/mL Free T4 0.84 (0.71-1.85) ng/dL Urine Opiates Screen POSITIVE H (Not Detect) Ur Buprenorphine Scrn Not Detected (Not Detect) ng/mL Ur Oxycodone Screen Not Detected (Not Detect) ng/mL Urine Methadone Screen Positive H (Not Detect) ng/mL Urine Fentanyl Screen POSITIVE H (Not Detect) Ur Barbiturates Screen Not Detected (Not Detect) Ur Phencyclidine Scrn Not Detected (Not Detect) Ur Amphetamines Screen Not Detected (Not Detect) U Benzodiazepines Scrn POSITIVE H (Not Detect) Urine Cocaine Screen POSITIVE H (Not Detect) U Marijuana (THC) Screen Not Detected (Not Detect) Ethyl Alcohol < 10 mg/dL S. pyogenes GrpA ALEXIS Negative (Negative) 07/06/24 07/06/24 Range/Units 17:08 19:50 WBC (4.8-10.8) X10*3/uL RBC (4.60-5.80) X10*6/uL Hgb (14.0-18.0) g/dl Hct (42.0-52.0) % MCV (80.0-98.0) fL MCH (27.0-33.0) pg MCHC (31.0-36.0) g/dl RDW (11.0-16.0) % Plt Count (160-400) X10*3/uL MPV (9.4-12.4) fL Immature Gran % (Auto) (0.0-0.4) % Neut % (Auto) (45-73) % Lymph % (Auto) (20-40) % Marion % (Auto) (2-11) % Eos % (Auto) (0-4) % Baso % (Auto) (0-2) % Lymph # (Auto) (1.2-4.9) X10*3/uL Marion # (Auto) (0.1-1.2) X10*3/uL Eos # (Auto) (0.0-0.4) X10*3/uL Baso # (Auto) (0.0-0.2) X10*3/uL Abs Immat Gran (auto) (0.00-0.03) X10*3/uL Absolute Neuts (auto) (2.0-8.3) x10*3/uL Absolute Nucleated RBC (0.0-0.012) X10*3/uL Nucleated RBC % (auto) (0.0-0.2) /100WBC PT (10.9-12.4) SEC INR (0.9-1.1) Sodium (135-145) mmol/L Potassium (3.3-5.1) mmol/L Chloride (96-108) mmol/L Carbon Dioxide (22-29) mmol/L Anion Gap (12-20) BUN (9-16) mg/dL Creatinine (0.5-1.4) mg/dL Estim Creat Clear Calc Estimated GFR Random Glucose (60-115) mg/dL Calcium (8.4-10.2) mg/dL Magnesium (1.6-2.6) mg/dL Total Bilirubin (0.0-1.0) mg/dL AST (5-37) U/L ALT (0-40) U/L Alkaline Phosphatase (39-117) U/L Troponin I High Sens 45.3 H D 40.4 H (<3.5-35.0) ng/L Total Protein (6.5-8.0) g/dL Albumin (3.5-5.0) g/dL Lipase (8-78) U/L TSH (0.32-4.0) uIU/mL Free T4 (0.71-1.85) ng/dL Urine Opiates Screen (Not Detect) Ur Buprenorphine Scrn (Not Detect) ng/mL Ur Oxycodone Screen (Not Detect) ng/mL Urine Methadone Screen (Not Detect) ng/mL Urine Fentanyl Screen (Not Detect) Ur Barbiturates Screen (Not Detect) Ur Phencyclidine Scrn (Not Detect) Ur Amphetamines Screen (Not Detect) U Benzodiazepines Scrn (Not Detect) Urine Cocaine Screen (Not Detect) U Marijuana (THC) Screen (Not Detect) Ethyl Alcohol mg/dL S. pyogenes GrpA ALEXIS (Negative) Independent Interpretation I performed an independent interpretation of an: EKG and Plain X-Ray Radiology Impression Discussion of test interpretation with radiology: I have reviewed the radiologist's reading. External Record Review External record reviewed: Inpatient record, Office record, Outpatient record, Prior outpatient labs, Prior outpatient radiology, Primary care record and Outside ED record Tests considered The following testing was considered but not selected: As above Chronic Conditions Patient?s care impacted by: Other Social Determinants Patient?s care significantly limited by Social Determinants of Health including: Inadequate housing, Low income, Alcoholism and drug addiction in family, Problems related to primary support group, Unemployment and Other Social Determinant of Health Discharge Plan Discharge Clinical Impression: Chest pain, Substance abuse Patient Disposition: Home, Self-Care Prescriptions: No Action methadone 10 mg Tablet 95 mg PO DAILY gabapentin 300 mg Capsule 600 mg PO QID Qty: 28 0RF clonidine HCl 0.1 mg tablet 1 tab PO DAILY Qty: 7 0RF methylphenidate HCl [Concerta] 36 mg tablet extended release 24hr 1 tab PO QAM Qty: 7 0RF aripiprazole 5 mg tablet 1 tab PO DAILY Qty: 7 0RF bupropion HCl 300 mg tablet extended release 24 hr 1 tab PO DAILY Qty: 7 0RF naproxen 500 mg tablet 500 mg PO Q8-12H PRN (Reason: pain (scale score 1-3)) Qty: 20 0RF lidocaine [Lidoderm] 5 % adhesive patch,medicated 1 patch topical DAILY Qty: 15 0RF Rx Instructions: leave on most painful area for up to 12 hrs cyclobenzaprine 5 mg tablet 5 mg PO Q8H Qty: 5 0RF Referrals: [facility] [Provider Group] Print Language: Chinese
[2024-07-06 14:05] VITALS: BP 164/100; PULSE 126; RESP 18; TEMP 36.8; O2SAT 99; BMI 28.2
[2024-07-06 14:22] LABS: Basophils Percent Auto 0.4 % (0-2); Eosinophils Absolute Auto 0.1 X10*3/uL (0.0-0.4); Eosinophils Percent Auto 1.3 % (0-4); Hematocrit 37.6 % (42.0-52.0); Hemoglobin 13.1 g/dl (14.0-18.0); Imm Gran Abs Auto 0.02 X10*3/uL (0.00-0.03); Imm Gran Pct Auto 0.3 % (0.0-0.4); Lymphocytes Absolute Auto 2.6 X10*3/uL (1.2-4.9); Lymphocytes Percent Auto 34.9 % (20-40); MANUAL DIFF FLAG NO; Mean Corpuscular HGB Conc 34.8 g/dl (31.0-36.0); Mean Corpuscular Volume 83.2 fL (80.0-98.0); Mean Platelet Volume 9.1 fL (9.4-12.4); Monocytes Absolute Auto 0.7 X10*3/uL (0.1-1.2); Monocytes Percent Auto 8.6 % (2-11); Neutrophils Absolute Auto 4.1 x10*3/uL (2.0-8.3); Neutrophils Percent Auto 54.5 % (45-73); Platelet Count 252 X10*3/uL (160-400); Red Blood Count 4.52 X10*6/uL (4.60-5.80); White Blood Count 7.6 X10*3/uL (4.8-10.8)
[2024-07-06 14:29] LABS: IDNOW Serial# 6674DD1D; Strep A Nucleic Acid Negative (Negative)
[2024-07-06 14:34] LABS: INTERNATIONAL NORM RATIO 0.9 (0.9-1.1); Prothrombin Time 10.4 SEC (10.9-12.4)
[2024-07-06 14:36] LABS: Alanine Aminotransferase 35 U/L (0-40); Albumin Level 4.3 g/dL (3.5-5.0); Alkaline Phosphatase 76 U/L (39-117); Anion Gap 12 (12-20); Aspartate Amino Transferase 37 U/L (5-37); Bilirubin Total 0.3 mg/dL (0.0-1.0); Blood Urea Nitrogen 15 mg/dL (9-16); Calcium 9.4 mg/dL (8.4-10.2); Carbon Dioxide 25 mmol/L (22-29); Chloride 105 mmol/L (96-108); Creatinine Clr Calc Pharmacy 128.1; Estimated Glomerular Filt Rate > 60; Glucose Random 106 mg/dL (60-115); Lipase 8 U/L (8-78); Potassium 3.6 mmol/L (3.3-5.1); Sodium 138 mmol/L (135-145); Total Protein 7.2 g/dL (6.5-8.0)
[2024-07-06 14:44] LABS: Troponin-I High Sensitivity 4.3 ng/L (<3.5-35.0)
[2024-07-06 14:57] LABS: TSH reflex Free T4 10.71 uIU/mL (0.32-4.0)
[2024-07-06 15:15] VITALS: BP 134/83; PULSE 104; RESP 18; TEMP 36.6; O2SAT 98
--- OUTSIDE RECORDS SUMMARY | 2024-07-06 15:19 | XMS_ITS | Continuity of Care Document ---
Author Organization [facility] ter Address [address] [place] [id number]- Care Team Providers Care Cardiovascular Lab Director Name Role Phone Not on Staff, PCP Primary Care Physician Unavail able Encounter [facility] Date(s): 03/02/24 - 03/02/[address] [address]- Discharge Disposition: A-D/C Home Attending Physician: Vale Andrew DO Admitting Physician: Vale Andrew DO Referring Physician: Not on Staff, Referring MD Allergies, Adverse Reactions, Alerts Substance Reaction Severity Status Tomatoes Active Medications cyclobenzaprine 10 mg oral tablet 10 mg, 1, tablet, By Mouth, 2 times a day, for 7 days, # 14 tablet, Refills 0, Tot. Refills 0, Acute 03/09/24 20:20:00 EDT, 03/02/24 20:20:00 EDT, Route to Pharmacy Electronically, [facility]/pharmacy #[id number], Partial fill upon patient request if the prescript... Start Date: 03/02/24 Stop Date: 03/09/24 Status: Ordered Flexeril 10 mg oral tablet 10 mg, Tablet, By Mouth, Once, STAT, 03/02/24 17:56:00 EDT, Stop date 03/02/24 17:56:00 EDT Start Date: 03/02/24 Stop Date: 03/02/24 Status: Completed Problem List Condition Confirmation Course Effective Dates Status Health St atus Informant General medical Confirmed Active Nicotine dependence Confirmed Active Opiate dependence Confirmed Active Bipolar I disorder, most recent episode depressed, severe without psychotic features Confirmed Active Results Radiology Reports * Exam Date Time Procedure Performing Provider Status 03/02/24 5:[address] Lumbar Spine W/O Contrast Marta Dowell (Verified) Notes: (CT Lumbar Spine W/O Contrast) Reason For Exam: Spine fracture, lumbar, traumatic;Other: RESULT: CT Lumbar Spine W/O Contrast CT Lumbar Spine W/O Contrast Hx of Present Illness: Atraumatic back pain. Clinical Question(s): Fracture, Dislocation CLINICAL QUESTION: Fracture/Dislocation TECHNIQUE: Thin section axial images were acquired through the lumbar spine. Bone and soft tissue algorithms were reconstructed along with coronal and sagittal reformats. Weight-based protocol using automatic tube modulation was used to optimize exposure parameters. CTDIvol Body: 17.80 mGy, DLP Body: 555 mGy*cm. COMPARISON: CT abdomen and pelvis 01/10/17 FINDINGS: Matrix Bath Attendant View Findings, Lines and Tubes: None. Spine: No fractures or bone lesion. Normal alignment. The intervertebral disc spaces are preserved. Soft tissues: No acute abnormality in the paravertebral soft tissues. Visualized aorta and kidneys appear unremarkable. Moderate amount of stool within the visualized colon. FINDINGS BY LEVEL: No significant bony stenosis is seen at any level in the lumbar spine. IMPRESSION: No lumbar spine fracture. No significant degenerative changes. Moderate amount of stool within the visualized colon suggestive of constipation. I have personally reviewed the images and I agree with this report. WSN: [id number] Ordering Physician: Vale Andrew Dictated By: Yasemin Lees MD Dictated Date/Time: 03/02/24 5:59 pm Reviewed By: Dax Duque MD Signed By: Dax Duque MD Signed Date/Time: 03/02/24 6:04 pm Transcribed By: ZIGGY Transcribed Date/Time: 03/02/24 5:53 pm Vital Signs Most recent to oldest [Reference Range]: 1 2 3 Oxygen Saturation [94-100 %] 100 % (03/02/24 7:40 PM) 100 % (03/02/24 3:50 PM) Pulse Rate [55-90 bpm] 62 bpm (03/02/24 7:40 PM) 77 bpm (03/02/24 3:50 PM) Blood Pressure [90-138/55-84 mm Hg] 128/76mm Hg (03/02/24 7:40 PM) 139/85mm Hg *H* (03/02/24 3:50 PM) Respiratory Rate [16-30 br/min] 16 br/min (03/02/24 7:40 PM) 18 br/min (03/02/24 6:10 PM) 19 br/min (03/02/24 3:50 PM) Temperature [96.8-100.4 DegF] 98.9 DegF (03/02/24 3:50 PM) Mode of Delivery (Oxygen) Room air (03/02/24 7:40 PM) Room air (03/02/24 3:50 PM) Blood pressure sites Arm, right (03/02/24 7:40 PM) Arm, right (03/02/24 3:50 PM) Temperature Route Oral (03/02/24 3:50 PM) Social History Social History Type Response Smoking Status 10 or more cigarette s (1/2 pack or more)/day in last 30 days entered on: 01/09/21 Sex Patient Care team information Care Team Personnel Name: Carmella Anand RN Position: S RN Member Role: Primary Care Nurse Name: Brown Smyth Position: S RN Member Role: Primary Care Nurse Name: Not on Staff, PCP Position: [facility] Physician (General Medicine) Member Role: PCP Care Team Related Persons Name: KATHRINE SANTOS Name: RUBY MARCELO Address: [address] [address] Name: PATIENT STATES, NO ONE
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
[2024-07-06] MEDS: 0.9 % Sodium Chloride 1,000 ML 999 ML IV (15:30)
[2024-07-06 15:42] LABS: Ethanol < 10 mg/dL; Magnesium 1.8 mg/dL (1.6-2.6)
--- NOTE | 2024-07-06 16:40 | PC.NURSE ---
Pt up walking around room/hallway. Redirected back to room and educated on need for cardiac exercise physiologist d/t pt having CP. Pt refusing IV fluids d/t stomach ache from eating too much [employer] , educated on needs for IV fluids. CARLOS Stewart made aware of pt behavior. Urine collected and sent to lab. Call vyas within reach, all needs met at this time.
[2024-07-06 16:43] LABS: Amphetamine Screen Urine Not Detected (Not Detect); Barbiturates, Urine Not Detected (Not Detect); Benzodiazepines Screen Urine POSITIVE (Not Detect); Buprenorphine Scr Not Detected (Not Detect); Cannabinoid Screen Urine Not Detected (Not Detect); Cocaine Screen Urine POSITIVE (Not Detect); Fentanyl, urine POSITIVE (Not Detect); Methadone Screen, Urine Positive (Not Detect); Opiate Screen Urine POSITIVE (Not Detect); Oxycodone Screen Urine Not Detected (Not Detect); Phencyclidine Screen Urine Not Detected (Not Detect)
[2024-07-06 17:09] LABS: Free T4 (Free Thyroxine) 0.84 ng/dL (0.71-1.85)
[2024-07-06 17:35] LABS: Troponin-I High Sensitivity 45.3 ng/L (<3.5-35.0)
[2024-07-06 19:07] VITALS: BP 127/79; PULSE 88; RESP 18; TEMP 36.7; O2SAT 96
[2024-07-06] MEDS: clonazePAM 1 MG TABLET PO (19:39)
--- NOTE | 2024-07-06 20:17 | MHC.EDTECH ---
pt caught vaping in room. pt was advised to put vape away and that it is not allowed at the hospital, pt responded by saying rules are meant to be broken then put vape down however still close within reach. PA and RN made aware
[2024-07-06 20:23] LABS: Troponin-I High Sensitivity 40.4 ng/L (<3.5-35.0)
[2024-07-06 20:53] VITALS: BP 125/84; PULSE 77; RESP 14; TEMP 36.9; O2SAT 96
[2024-07-06 20:54] VITALS: BP 125/84; PULSE 77; RESP 14; TEMP 36.9; O2SAT 96
== END 2024-07-06 21:02 | disposition home or self-care (01) ==
PROVIDERS: Physician Assistant; Emergency Provider Emergency Medicine
DX: R07.9 Chest pain, unspecified (principal); F19.10 Other psychoactive substance abuse, uncomplicated; R06.02 Shortness of breath; F14.20 Cocaine dependence, uncomplicated; F11.20 Opioid dependence, uncomplicated; F17.210 Nicotine dependence, cigarettes, uncomplicated
CPT/HCPCS: 36415; 71046; 80053; 80307; 83690; 83735; 84439; 84443; 84484; 85025; 85610; 87651; 93005; 96360; 96361; 99285

== ENCOUNTER → 2024-07-06 13:49 | Outpatient (BNV) | payer MEDICAID, SELFPAY | PROVIDERS: Emergency Provider Emergency Medicine; Visit Provider Internal Medicine Cardiovascular Disease | DX: R94.31 Abnormal electrocardiogram [ECG] [EKG] (principal) | CPT/HCPCS: 93010 ==

== ENCOUNTER 2024-09-29 12:31 | Inpatient (IN) | payer OTHER, SELFPAY ==
[2024-09-29 12:51] VITALS: BMI 31.1
[2024-09-29] MEDS: ALPRAZolam 0.5 MG TABLET 1 MG PO ×3 (14:09→20:20)
[2024-09-29] MEDS: Nicotine Polacrilex Lozenge 4 MG LOZENGE BUCCAL ×3 (14:11→20:21)
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
[2024-09-29] MEDS: methADONE HCl 20 MG/2 ML ORAL.CONC 30 MG PO (16:14)
--- NOTE | 2024-09-29 19:07 | PC.NURSE ---
Brian was admitted to [facility] at time from [facility] on CV for treatment of PTSD and opiate use disorder with SI per crisis eval. Pt denies ever voicing SI but confirms he is struggling because he is trying to take himself off his medications ( methadone and xanax) because he needs to for a job.? On admission he is alert, fully oriented, disorganized but cooperative with admission assessment. He denies current physical complaint.? Mood is expansive.Affect is anxious. Auditory, visual, tactile, other hallucinations? No psychosis noted or reported. He denies ideation, plan or intent to harm self or others. Appetiteis good with no recent wt loss or gain Sleep is impaired. Focus is poor.? Goal of admission is to taper off methdoane and xanax per pt.? He is placed on 15 minute safety checks. Of not in the ED ba was concealing a vape but was cooperative with skin check on admission to .
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
[2024-09-30] MEDS: hydrOXYzine HCL 25 MG TABLET PO ×3 (00:16→14:56)
[2024-09-30] MEDS: traZODone HCL 50 MG TABLET PO ×3 (00:16→23:56)
[2024-09-30] MEDS: methADONE HCl 20 MG/2 ML ORAL.CONC 30 MG PO ×2 (07:59→08:37)
[2024-09-30 08:00] VITALS: BP 124/68; PULSE 80; RESP 14; TEMP 36.6; O2SAT 96
[2024-09-30] MEDS: ALPRAZolam 0.5 MG TABLET 1 MG PO ×2 (08:02→13:03)
[2024-09-30] MEDS: Gabapentin 400 MG CAPSULE 800 MG PO ×3 (08:23→20:09)
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
[2024-09-30 09:35] LABS: Cholesterol 149 mg/dL (<200); HDL Cholesterol 33 mg/dL (>40); LDL Cholesterol Calculated 85 mg/dL (<100); Triglycerides 157 mg/dL (<150)
[2024-09-30] MEDS: Nicotine Polacrilex Lozenge 4 MG LOZENGE BUCCAL ×4 (12:30→23:55)
[2024-09-30 19:03] VITALS: BP 135/89; PULSE 99; RESP 17; TEMP 36.6; O2SAT 99
[2024-10-01] MEDS: Nicotine Polacrilex Lozenge 4 MG LOZENGE BUCCAL ×6 (02:52→20:02)
[2024-10-01] MEDS: LORazepam 1 MG TABLET PO (03:01)
[2024-10-01 08:00] VITALS: BP 120/67; PULSE 92; RESP 16; TEMP 36.8; O2SAT 97
[2024-10-01] MEDS: methADONE HCl 20 MG/2 ML ORAL.CONC 60 MG PO (08:03)
[2024-10-01] MEDS: ALPRAZolam 0.5 MG TABLET 1 MG PO ×2 (08:04→13:18)
[2024-10-01] MEDS: Gabapentin 400 MG CAPSULE 800 MG PO ×3 (08:51→20:01)
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
[2024-10-01] MEDS: Cyclobenzaprine HCl 10 MG TABLET PO (13:18)
[2024-10-01 20:00] VITALS: BP 141/90; PULSE 98; RESP 16; TEMP 37.1; O2SAT 96
[2024-10-01] MEDS: hydrOXYzine HCL 25 MG TABLET PO (20:02)
[2024-10-02] MEDS: Nicotine Polacrilex Lozenge 4 MG LOZENGE BUCCAL ×5 (03:50→19:55)
[2024-10-02] MEDS: traZODone HCL 50 MG TABLET PO (03:58)
--- NOTE | 2024-10-02 04:04 | PC.NURSE ---
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
[2024-10-02 08:00] VITALS: BP 145/89; PULSE 94; RESP 16; TEMP 37.8; O2SAT 98
[2024-10-02] MEDS: methADONE HCl 20 MG/2 ML ORAL.CONC 55 MG PO (08:16)
[2024-10-02] MEDS: Gabapentin 400 MG CAPSULE 800 MG PO ×3 (08:18→19:55)
[2024-10-02] MEDS: ALPRAZolam 0.5 MG TABLET 1 MG PO ×2 (08:18→13:14)
[2024-10-02 10:45] VITALS: TEMP 37
[2024-10-02] MEDS: Ondansetron ODT 4 MG TAB.RAPDIS TRANSLINGU (12:06)
--- NOTE | 2024-10-02 17:32 | HO.PSYCHPN ---
Subjective Subjective Date of Service: 10/02/24 Reason For Visit: Detox Interim History: calm, cooperative. a bit sedated appearing. agreeable to decrease xanax from 1 BID to 0.75 BID. plan to continue methadone at 55 mg another day, then decrease again. per staff, somnolent, sedated, med-seeking. Mental Status Exam Mental Status Exam Narrative: In today's visit he is alert, oriented and pleasant. Normal speech. Good eye contact. Affect is appropriate and varied. No signs of psychosis. Cognitively is intact. No SI/HI. Judgment is intact. Able to move all limbs. No gait abnormalities. Diagnostics Vital Signs (24Hr): Vital Signs - 24 hr 10/01/24 20:00 10/02/24 08:00 10/02/24 10:45 Temperature 98.7 F 100.1 F 98.6 F Pulse Rate 98 94 Respiratory Rate 16 16 Blood Pressure 141/90 H 145/89 H Pulse Oximetry 96 98 Oxygen Delivery Method Room Air Room Air BMI result Body Mass Index 31.1 Medications Medications Current Medications Acetaminophen (Acetaminophen 325 Mg Tablet) 650 mg PO Q6H PRN PRN Reason: Headache/Pain, Scale 1-10 Al Hydroxide/Mg Hydroxide (Magnesium Hydrox/Alum Hydrox 30 Ml Oral.Susp) 30 ml PO Q6H PRN PRN Reason: Heartburn/Nausea Alprazolam (Alprazolam 0.25 Mg Tablet) 0.75 mg PO BID@0900,1400 [facility] Cyclobenzaprine HCl (Cyclobenzaprine Hcl 10 Mg Tablet) 10 mg PO BID PRN PRN Reason: Muscle Spasm Last Admin: 10/01/24 13:18 Dose: 10 mg Gabapentin (Gabapentin 400 Mg Capsule) 800 mg PO TID [facility] Last Admin: 10/02/24 14:15 Dose: 800 mg Hydroxyzine HCl (Hydroxyzine Hcl 25 Mg Tablet) 25 mg PO Q6H PRN PRN Reason: mild anxiety Last Admin: 10/01/24 20:02 Dose: 25 mg Magnesium Hydroxide (Milk Of Magnesia 30 Ml Oral.Susp) 30 ml PO DAILY PRN PRN Reason: Constipation Methadone HCl (Methadone Hcl 20 Mg/2 Ml Oral.Conc) 55 mg PO DAILY@0800 [facility] Last Admin: 10/02/24 08:16 Dose: 55 mg Nicotine (Nicotine 21 Mg Patch.Td24) 21 mg TRANSDERMA DAILY PRN PRN Reason: Nicotine Cravings Nicotine Polacrilex (Nicotine Polacrilex Lozenge 4 Mg Lozenge) 4 mg BUCCAL Q1H PRN PRN Reason: Nicotine Cravings Last Admin: 10/02/24 16:42 Dose: 4 mg Ondansetron HCl (Ondansetron Odt 4 Mg Tab.Rapdis) 4 mg TRANSLINGU Q6H PRN PRN Reason: Nausea and Vomiting Last Admin: 10/02/24 12:06 Dose: 4 mg Trazodone HCl (Trazodone Hcl 50 Mg Tablet) 50 mg PO BEDTIME MRX1 PRN PRN Reason: Insomnia Last Admin: 10/02/24 03:58 Dose: 50 mg Allergies Allergies Allergy/AdvReac Type Severity Reaction Status Date / Time chlorpromazine Allergy Unknown Verified 09/29/24 12:54 [From Thorazine] fish derived [fish] Allergy Unknown Verified 09/29/24 12:53 haloperidol [From Haldol] Allergy Unknown Verified 09/29/24 12:52 tomato Allergy Unknown Verified 09/29/24 12:54 quetiapine [From Seroquel] AdvReac Shakiness Verified 09/29/24 12:55 Assessment & Plan Assessment & Plan (1) Opioid use disorder, severe, dependence: Status: Acute Code(s): F11.20 - Opioid dependence, uncomplicated (2) Chronic post-traumatic stress disorder (PTSD): Status: Acute Code(s): F43.12 - Post-traumatic stress disorder, chronic Plan 33-year-old man with history of heroin and cocaine dependence going through withdrawals since he stopped his methadone and Xanax. Both were started at 60 mg and 1 mg b.i.d. to be decreased gradually over the next several days by 5 mg every 1-3 days. He is interested in getting off of the methadone, possibly Xanax. He is admitted on a CV. Outpatient referrals to be made Upon discharge. 10/01: Continue current regimen and plans. Decreased methadone as of tomorrow by 5 mg. Added Flexeril 10 mg b.i.d. p.r.n. 10/02: continue methadone 55 mg again tomorrow, then decrease to 50 mg as of 10/04. decrease xanax to 0.75 mg BID. decrease by 0.25 mg daily until taper completed. somewhat somnolent appearing today. Patient educated on: medication risk/benefits Reason for continued inpatient stay Substantial Risk for: inability to function Time Spent With Patient Time: Total time managing care of this patient today __25__ minutes.
[2024-10-02 20:00] VITALS: BP 127/83; PULSE 106; RESP 16; TEMP 36.8; O2SAT 97
[2024-10-03] MEDS: Nicotine Polacrilex Lozenge 4 MG LOZENGE BUCCAL ×3 (01:05→08:40)
[2024-10-03 07:41] VITALS: BP 126/81; PULSE 99; RESP 16; TEMP 36.9; O2SAT 97
[2024-10-03] MEDS: methADONE HCl 20 MG/2 ML ORAL.CONC 55 MG PO (07:43)
[2024-10-03] MEDS: ALPRAZolam 0.25 MG TABLET 0.75 MG PO ×2 (08:06→13:34)
[2024-10-03] MEDS: Gabapentin 400 MG CAPSULE 800 MG PO ×3 (08:07→22:25)
--- NOTE | 2024-10-03 09:12 | HO.PSYCHPN ---
Subjective Subjective Date of Service: 10/03/24 Reason For Visit: Detox Subjective Notes: Conditional Voluntary Interim History: Active on unit. not attending groups. Observed talking on phone most of the day. Patient reports feeling anxious d/t unity acuity but other bullock looking forward to tapering off methadone and xanax. denies SI/HI/VH/AH. Methadone decreased to 50mg PO daily and xanax decreased to 0.75mg PO daily and 0.50mg@1400. Medication Compliance: Yes Side effects from medications: No Attending Groups: No Mental Status Exam Mental Status Exam Patient Appearance: Well Grooomed Patient Orientation: Person, Place, Time and Situation Level of Consciousness: Awake and Alert Patient Behavior: Appropriate, Cooperative and Good Eye Contact Mood Description: Anxious Affect Description: Blunted Ability to Follow Directions: Good Speech Pattern: Clear and Appropriate Memory Description: Intact Hallucinations: None Delusions: Not Present Thought Process: Intact and Goal Oriented Thought Content: positive for Intact Judgement: Fair Diagnostics Vital Signs (24Hr): Vital Signs - 24 hr 10/02/24 10:45 10/02/24 20:00 10/03/24 07:41 Temperature 98.6 F 98.3 F 98.4 F Pulse Rate 106 H 99 Respiratory Rate 16 16 Blood Pressure 127/83 126/81 Pulse Oximetry 97 97 Oxygen Delivery Method Room Air Room Air BMI result Body Mass Index 31.1 Medications Medications Current Medications Acetaminophen (Acetaminophen 325 Mg Tablet) 650 mg PO Q6H PRN PRN Reason: Headache/Pain, Scale 1-10 Al Hydroxide/Mg Hydroxide (Magnesium Hydrox/Alum Hydrox 30 Ml Oral.Susp) 30 ml PO Q6H PRN PRN Reason: Heartburn/Nausea Alprazolam (Alprazolam 0.25 Mg Tablet) 0.75 mg PO BID@0900,1400 [facility] Last Admin: 10/03/24 08:06 Dose: 0.75 mg Cyclobenzaprine HCl (Cyclobenzaprine Hcl 10 Mg Tablet) 10 mg PO BID PRN PRN Reason: Muscle Spasm Last Admin: 10/01/24 13:18 Dose: 10 mg Gabapentin (Gabapentin 400 Mg Capsule) 800 mg PO TID [facility] Last Admin: 10/03/24 08:07 Dose: 800 mg Hydroxyzine HCl (Hydroxyzine Hcl 25 Mg Tablet) 25 mg PO Q6H PRN PRN Reason: mild anxiety Last Admin: 10/01/24 20:02 Dose: 25 mg Magnesium Hydroxide (Milk Of Magnesia 30 Ml Oral.Susp) 30 ml PO DAILY PRN PRN Reason: Constipation Methadone HCl (Methadone Hcl 20 Mg/2 Ml Oral.Conc) 55 mg PO DAILY@0800 [facility] Last Admin: 10/03/24 07:43 Dose: 55 mg Nicotine (Nicotine 21 Mg Patch.Td24) 21 mg TRANSDERMA DAILY PRN PRN Reason: Nicotine Cravings Nicotine Polacrilex (Nicotine Polacrilex Lozenge 4 Mg Lozenge) 4 mg BUCCAL Q1H PRN PRN Reason: Nicotine Cravings Last Admin: 10/03/24 08:40 Dose: 4 mg Ondansetron HCl (Ondansetron Odt 4 Mg Tab.Rapdis) 4 mg TRANSLINGU Q6H PRN PRN Reason: Nausea and Vomiting Last Admin: 10/02/24 12:06 Dose: 4 mg Trazodone HCl (Trazodone Hcl 50 Mg Tablet) 50 mg PO BEDTIME MRX1 PRN PRN Reason: Insomnia Last Admin: 10/02/24 03:58 Dose: 50 mg Allergies Allergies Allergy/AdvReac Type Severity Reaction Status Date / Time chlorpromazine Allergy Unknown Verified 09/29/24 12:54 [From Thorazine] fish derived [fish] Allergy Unknown Verified 09/29/24 12:53 haloperidol [From Haldol] Allergy Unknown Verified 09/29/24 12:52 tomato Allergy Unknown Verified 09/29/24 12:54 quetiapine [From Seroquel] AdvReac Shakiness Verified 09/29/24 12:55 Assessment & Plan Assessment & Plan (1) Opioid use disorder, severe, dependence: Status: Acute Code(s): F11.20 - Opioid dependence, uncomplicated (2) Chronic post-traumatic stress disorder (PTSD): Status: Acute Code(s): F43.12 - Post-traumatic stress disorder, chronic Plan 33-year-old man with history of heroin and cocaine dependence going through withdrawals since he stopped his methadone and Xanax. Both were started at 60 mg and 1 mg b.i.d. to be decreased gradually over the next several days by 5 mg every 1-3 days. He is interested in getting off of the methadone, possibly Xanax. He is admitted on a CV. Outpatient referrals to be made Upon discharge. 10/01: Continue current regimen and plans. Decreased methadone as of tomorrow by 5 mg. Added Flexeril 10 mg b.i.d. p.r.n. 10/02: continue methadone 55 mg again tomorrow, then decrease to 50 mg as of 10/04. decrease xanax to 0.75 mg BID. decrease by 0.25 mg daily until taper completed. somewhat somnolent appearing today. 10/03: Methadone decreased to 50mg PO daily and xanax decreased to 0.75mg PO daily and 0.50mg@1400. Patient educated on: diagnosis and medication risk/benefits Reason for continued inpatient stay Substantial Risk for: med/psych decompensation Time Spent With Patient Time: Total time managing care of this patient today _20___ minutes.
[2024-10-03] MEDS: Nicotine Polacrilex 2 MG GUM 4 MG BUCCAL ×5 (11:42→21:55)
[2024-10-03 19:10] VITALS: BP 137/90; PULSE 100; RESP 16; TEMP 36.9; O2SAT 95
[2024-10-04] MEDS: Nicotine Polacrilex 2 MG GUM 4 MG BUCCAL ×4 (04:37→17:19)
[2024-10-04] MEDS: Cyclobenzaprine HCl 10 MG TABLET PO ×2 (05:00→13:13)
[2024-10-04] MEDS: OLANZapine 5 MG TABLET PO (05:00)
[2024-10-04 07:00] VITALS: BMI 32.6
[2024-10-04 07:25] VITALS: BP 109/58; PULSE 69; RESP 16; TEMP 36.4; O2SAT 97
[2024-10-04] MEDS: ALPRAZolam 0.25 MG TABLET 0.75 MG PO (08:07)
[2024-10-04] MEDS: Gabapentin 400 MG CAPSULE 800 MG PO ×3 (08:07→20:42)
[2024-10-04] MEDS: methADONE HCl 20 MG/2 ML ORAL.CONC 50 MG PO (08:08)
--- NOTE | 2024-10-04 10:14 | P.PNPSI_ITS ---
Subjective Subjective Date of Service: 10/04/24 Reason For Visit: Detox Subjective Notes: Conditional Voluntary Interim History: Patient reports feeling depressed d/t losing custody of my kids because I haven't seen them in a year and missed my court date . He reports being upset at my ex's boyfriend for having my kid call him dad . denies SI/HI/VH/AH. Xanax decreased to 0.5mg@0900, 1400. Pt denies any side effects from decrease in medications. Medication Compliance: Yes Side effects from medications: No Attending Groups: No Mental Status Exam Mental Status Exam Patient Appearance: Well Grooomed Patient Orientation: Person, Place, Time and Situation Level of Consciousness: Awake and Alert Patient Behavior: Appropriate, Cooperative and Good Eye Contact Mood Description: Depressed and Anxious Affect Description: Blunted Ability to Follow Directions: Good Speech Pattern: Clear and Appropriate Memory Description: Intact Hallucinations: None Delusions: Not Present Thought Process: Intact Thought Content: positive for Intact Diagnostics Vital Signs (24Hr): Vital Signs - 24 hr 10/03/24 19:10 10/04/24 07:25 Temperature 98.4 F 97.5 F Pulse Rate 100 69 Respiratory Rate 16 16 Blood Pressure 137/90 H 109/58 L Pulse Oximetry 95 97 Oxygen Delivery Method Room Air Room Air BMI result Body Mass Index 31.1 Medications Medications Current Medications Acetaminophen (Acetaminophen 325 Mg Tablet) 650 mg PO Q6H PRN PRN Reason: Headache/Pain, Scale 1-10 Al Hydroxide/Mg Hydroxide (Magnesium Hydrox/Alum Hydrox 30 Ml Oral.Susp) 30 ml PO Q6H PRN PRN Reason: Heartburn/Nausea Alprazolam (Alprazolam 0.25 Mg Tablet) 0.75 mg PO DAILY [facility] Last Admin: 10/04/24 08:07 Dose: 0.75 mg Alprazolam (Alprazolam 0.5 Mg Tablet) 0.5 mg PO 1400 [facility] Chlorpromazine HCl (Chlorpromazine Hcl 100 Mg Tablet) 100 mg PO Q6H PRN PRN Reason: agitation Cyclobenzaprine HCl (Cyclobenzaprine Hcl 10 Mg Tablet) 10 mg PO BID PRN PRN Reason: Muscle Spasm Last Admin: 10/04/24 05:00 Dose: 10 mg Gabapentin (Gabapentin 400 Mg Capsule) 800 mg PO TID [facility] Last Admin: 10/04/24 08:07 Dose: 800 mg Hydroxyzine HCl (Hydroxyzine Hcl 25 Mg Tablet) 25 mg PO Q6H PRN PRN Reason: mild anxiety Last Admin: 10/01/24 20:02 Dose: 25 mg Magnesium Hydroxide (Milk Of Magnesia 30 Ml Oral.Susp) 30 ml PO DAILY PRN PRN Reason: Constipation Methadone HCl (Methadone Hcl 20 Mg/2 Ml Oral.Conc) 50 mg PO DAILY@0800 [facility] Last Admin: 10/04/24 08:08 Dose: 50 mg Nicotine (Nicotine 21 Mg Patch.Td24) 21 mg TRANSDERMA DAILY PRN PRN Reason: Nicotine Cravings Nicotine Polacrilex (Nicotine Polacrilex Lozenge 4 Mg Lozenge) 4 mg BUCCAL Q1H PRN PRN Reason: Nicotine Cravings Last Admin: 10/03/24 08:40 Dose: 4 mg Nicotine Polacrilex (Nicotine Polacrilex 2 Mg Gum) 4 mg BUCCAL Q1H PRN PRN Reason: Nicotine Cravings Last Admin: 10/04/24 09:29 Dose: 4 mg Olanzapine (Olanzapine 5 Mg Tablet) 5 mg PO Q4H PRN PRN Reason: agitation Last Admin: 10/04/24 05:00 Dose: 5 mg Ondansetron HCl (Ondansetron Odt 4 Mg Tab.Rapdis) 4 mg TRANSLINGU Q6H PRN PRN Reason: Nausea and Vomiting Last Admin: 10/02/24 12:06 Dose: 4 mg Trazodone HCl (Trazodone Hcl 50 Mg Tablet) 50 mg PO BEDTIME MRX1 PRN PRN Reason: Insomnia Last Admin: 10/02/24 03:58 Dose: 50 mg Allergies Allergies Allergy/AdvReac Type Severity Reaction Status Date / Time chlorpromazine Allergy Unknown Verified 09/29/24 12:54 [From Thorazine] fish derived [fish] Allergy Unknown Verified 09/29/24 12:53 haloperidol [From Haldol] Allergy Unknown Verified 09/29/24 12:52 tomato Allergy Unknown Verified 09/29/24 12:54 quetiapine [From Seroquel] AdvReac Shakiness Verified 09/29/24 12:55 Assessment & Plan Assessment & Plan (1) Opioid use disorder, severe, dependence: Status: Acute Code(s): F11.20 - Opioid dependence, uncomplicated (2) Chronic post-traumatic stress disorder (PTSD): Status: Acute Code(s): F43.12 - Post-traumatic stress disorder, chronic Plan 33-year-old man with history of heroin and cocaine dependence going through withdrawals since he stopped his methadone and Xanax. Both were started at 60 mg and 1 mg b.i.d. to be decreased gradually over the next several days by 5 mg every 1-3 days. He is interested in getting off of the methadone, possibly Xanax. He is admitted on a CV. Outpatient referrals to be made Upon discharge. 10/01: Continue current regimen and plans. Decreased methadone as of tomorrow by 5 mg. Added Flexeril 10 mg b.i.d. p.r.n. 10/02: continue methadone 55 mg again tomorrow, then decrease to 50 mg as of 10/04. decrease xanax to 0.75 mg BID. decrease by 0.25 mg daily until taper completed. somewhat somnolent appearing today. 10/03: Methadone decreased to 50mg PO daily and xanax decreased to 0.75mg PO daily and 0.50mg@1400. 10/04: Xanax decreased to 0.5mg@0900, 1400. Pt denies any side effects from decrease in medications. Patient educated on: diagnosis and medication risk/benefits Reason for continued inpatient stay Substantial Risk for: med/psych decompensation Time Spent With Patient Time: Total time managing care of this patient today _20___ minutes.
[2024-10-04] MEDS: ALPRAZolam 0.5 MG TABLET PO (13:13)
[2024-10-04] MEDS: Nicotine Polacrilex Lozenge 4 MG LOZENGE BUCCAL (13:14)
[2024-10-05] MEDS: Cyclobenzaprine HCl 10 MG TABLET PO ×2 (02:20→17:54)
[2024-10-05] MEDS: Nicotine Polacrilex 2 MG GUM 4 MG BUCCAL ×7 (02:22→22:15)
[2024-10-05] MEDS: Nicotine Polacrilex Lozenge 4 MG LOZENGE BUCCAL ×3 (03:06→19:43)
[2024-10-05 07:05] VITALS: BP 136/91; PULSE 98; RESP 12; TEMP 36.7; O2SAT 97
[2024-10-05] MEDS: methADONE HCl 20 MG/2 ML ORAL.CONC 50 MG PO (08:07)
[2024-10-05] MEDS: ALPRAZolam 0.5 MG TABLET PO ×2 (08:24→14:17)
[2024-10-05] MEDS: Gabapentin 400 MG CAPSULE 800 MG PO ×2 (08:24→14:17)
--- NOTE | 2024-10-05 11:53 | HO.PSYCHPN ---
Subjective Subjective Date of Service: 10/05/24 Reason For Visit: Detox Subjective Notes: Conditional Voluntary Interim History: Active on unit, social with peers. attending groups. Patient continues to report feeling depressed d/t child custody; denies SI/HI/VH/AH. Xanax decreased to 0.5mg@0900 and 0.25mg@1400. Methadone decreased to 45mg PO daily. Continue with Xanax and Methadone taper. Medication Compliance: Yes Side effects from medications: No Attending Groups: Yes Mental Status Exam Mental Status Exam Patient Appearance: Well Grooomed Patient Orientation: Person, Place, Time and Situation Level of Consciousness: Awake and Alert Patient Behavior: Appropriate, Cooperative and Good Eye Contact Mood Description: Depressed and Anxious Affect Description: Blunted Ability to Follow Directions: Good Speech Pattern: Clear and Appropriate Memory Description: Intact Hallucinations: None Delusions: Not Present Thought Process: Intact Thought Content: positive for Intact Diagnostics Vital Signs (24Hr): Vital Signs - 24 hr 10/05/24 07:05 Temperature 98.1 F Pulse Rate 98 Respiratory Rate 12 Blood Pressure 136/91 H Pulse Oximetry 97 Oxygen Delivery Method Room Air BMI result Body Mass Index 32.6 Medications Medications Current Medications Acetaminophen (Acetaminophen 325 Mg Tablet) 650 mg PO Q6H PRN PRN Reason: Headache/Pain, Scale 1-10 Al Hydroxide/Mg Hydroxide (Magnesium Hydrox/Alum Hydrox 30 Ml Oral.Susp) 30 ml PO Q6H PRN PRN Reason: Heartburn/Nausea Alprazolam (Alprazolam 0.5 Mg Tablet) 0.5 mg PO BID@0900,1400 [facility] Last Admin: 10/05/24 08:24 Dose: 0.5 mg Chlorpromazine HCl (Chlorpromazine Hcl 100 Mg Tablet) 100 mg PO Q6H PRN PRN Reason: agitation Cyclobenzaprine HCl (Cyclobenzaprine Hcl 10 Mg Tablet) 10 mg PO BID PRN PRN Reason: Muscle Spasm Last Admin: 10/05/24 02:20 Dose: 10 mg Gabapentin (Gabapentin 400 Mg Capsule) 800 mg PO TID [facility] Last Admin: 10/05/24 08:24 Dose: 800 mg Hydroxyzine HCl (Hydroxyzine Hcl 25 Mg Tablet) 25 mg PO Q6H PRN PRN Reason: mild anxiety Last Admin: 10/01/24 20:02 Dose: 25 mg Magnesium Hydroxide (Milk Of Magnesia 30 Ml Oral.Susp) 30 ml PO DAILY PRN PRN Reason: Constipation Methadone HCl (Methadone Hcl 20 Mg/2 Ml Oral.Conc) 50 mg PO DAILY@0800 [facility] Last Admin: 10/05/24 08:07 Dose: 50 mg Nicotine (Nicotine 21 Mg Patch.Td24) 21 mg TRANSDERMA DAILY PRN PRN Reason: Nicotine Cravings Nicotine Polacrilex (Nicotine Polacrilex Lozenge 4 Mg Lozenge) 4 mg BUCCAL Q1H PRN PRN Reason: Nicotine Cravings Last Admin: 10/05/24 08:46 Dose: 4 mg Nicotine Polacrilex (Nicotine Polacrilex 2 Mg Gum) 4 mg BUCCAL Q1H PRN PRN Reason: Nicotine Cravings Last Admin: 10/05/24 10:25 Dose: 4 mg Olanzapine (Olanzapine 5 Mg Tablet) 5 mg PO Q4H PRN PRN Reason: agitation Last Admin: 10/04/24 05:00 Dose: 5 mg Ondansetron HCl (Ondansetron Odt 4 Mg Tab.Rapdis) 4 mg TRANSLINGU Q6H PRN PRN Reason: Nausea and Vomiting Last Admin: 10/02/24 12:06 Dose: 4 mg Trazodone HCl (Trazodone Hcl 50 Mg Tablet) 50 mg PO BEDTIME MRX1 PRN PRN Reason: Insomnia Last Admin: 10/02/24 03:58 Dose: 50 mg Allergies Allergies Allergy/AdvReac Type Severity Reaction Status Date / Time chlorpromazine Allergy Unknown Verified 09/29/24 12:54 [From Thorazine] fish derived [fish] Allergy Unknown Verified 09/29/24 12:53 haloperidol [From Haldol] Allergy Unknown Verified 09/29/24 12:52 tomato Allergy Unknown Verified 09/29/24 12:54 quetiapine [From Seroquel] AdvReac Shakiness Verified 09/29/24 12:55 Assessment & Plan Assessment & Plan (1) Opioid use disorder, severe, dependence: Status: Acute Code(s): F11.20 - Opioid dependence, uncomplicated (2) Chronic post-traumatic stress disorder (PTSD): Status: Acute Code(s): F43.12 - Post-traumatic stress disorder, chronic Plan 33-year-old man with history of heroin and cocaine dependence going through withdrawals since he stopped his methadone and Xanax. Both were started at 60 mg and 1 mg b.i.d. to be decreased gradually over the next several days by 5 mg every 1-3 days. He is interested in getting off of the methadone, possibly Xanax. He is admitted on a CV. Outpatient referrals to be made Upon discharge. 10/01: Continue current regimen and plans. Decreased methadone as of tomorrow by 5 mg. Added Flexeril 10 mg b.i.d. p.r.n. 10/02: continue methadone 55 mg again tomorrow, then decrease to 50 mg as of 10/04. decrease xanax to 0.75 mg BID. decrease by 0.25 mg daily until taper completed. somewhat somnolent appearing today. 10/03: Methadone decreased to 50mg PO daily and xanax decreased to 0.75mg PO daily and 0.50mg@1400. 10/04: Xanax decreased to 0.5mg@0900, 1400. Pt denies any side effects from decrease in medications. 10/05: Xanax decreased to 0.5mg@0900 and 0.25mg@1400. Methadone decreased to 45mg PO daily. Continue with Xanax and Methadone taper. Patient educated on: diagnosis and medication risk/benefits Reason for continued inpatient stay Substantial Risk for: med/psych decompensation Time Spent With Patient Time: Total time managing care of this patient today _20___ minutes.
[2024-10-06] MEDS: Nicotine Polacrilex Lozenge 4 MG LOZENGE BUCCAL (01:13)
[2024-10-06] MEDS: traZODone HCL 50 MG TABLET PO (01:13)
[2024-10-06] MEDS: hydrOXYzine HCL 25 MG TABLET PO (02:17)
[2024-10-06] MEDS: OLANZapine 5 MG TABLET PO (02:17)
--- NOTE | 2024-10-06 02:20 | PC.NURSE ---
Brian reported that he was slightly anxious and agitated due to not being able to sleep and Trazodone not working for him. Patient given Zyprexa po prn and Atarax PO prn
[2024-10-06] MEDS: Nicotine Polacrilex 2 MG GUM 4 MG BUCCAL ×6 (06:44→20:46)
[2024-10-06 07:15] VITALS: BP 135/79; PULSE 87; RESP 14; TEMP 36.6; O2SAT 94
[2024-10-06] MEDS: methADONE HCl 20 MG/2 ML ORAL.CONC 45 MG PO (08:12)
[2024-10-06] MEDS: ALPRAZolam 0.5 MG TABLET PO (08:44)
[2024-10-06] MEDS: Cyclobenzaprine HCl 10 MG TABLET PO (08:44)
[2024-10-06] MEDS: Gabapentin 400 MG CAPSULE 800 MG PO ×3 (08:44→22:21)
--- NOTE | 2024-10-06 10:17 | HO.PSYCHPN ---
Subjective Subjective Date of Service: 10/06/24 Reason For Visit: Detox Interim History: Patient seen. Discussed with RN. Patient is not attending groups. He spends time in the side TV room. He is anxious about the continued taper of Xanax. Slept poorly last night. He refused HS Gabapentin. He denies SI/HI/VH/AH. Review of Systems Review of Systems Generalized muscle pain and spasms Yes all other systems are reviewed and are negative Mental Status Exam Mental Status Exam Narrative: In today's visit he is alert, oriented and pleasant. Normal speech. Good eye contact. Affect is appropriate and varied. No signs of psychosis. Cognitively is intact. No SI/HI. Judgment is intact. Able to move all limbs. No gait abnormalities. Patient Appearance: Well Grooomed Patient Orientation: Person, Place, Time and Situation Level of Consciousness: Awake and Alert Patient Behavior: Appropriate, Cooperative and Good Eye Contact Mood Description: Depressed and Anxious Affect Description: Blunted Ability to Follow Directions: Good Speech Pattern: Clear and Appropriate Memory Description: Intact Diagnostics Vital Signs (24Hr): Vital Signs - 24 hr 10/06/24 07:15 Temperature 97.8 F Pulse Rate 87 Respiratory Rate 14 Blood Pressure 135/79 Pulse Oximetry 94 Oxygen Delivery Method Room Air BMI result Body Mass Index 32.6 Medications Medications Current Medications Acetaminophen (Acetaminophen 325 Mg Tablet) 650 mg PO Q6H PRN PRN Reason: Headache/Pain, Scale 1-10 Al Hydroxide/Mg Hydroxide (Magnesium Hydrox/Alum Hydrox 30 Ml Oral.Susp) 30 ml PO Q6H PRN PRN Reason: Heartburn/Nausea Alprazolam (Alprazolam 0.5 Mg Tablet) 0.5 mg PO DAILY [facility] Last Admin: 10/06/24 08:44 Dose: 0.5 mg Alprazolam (Alprazolam 0.25 Mg Tablet) 0.25 mg PO DAILY@1400 [facility] Chlorpromazine HCl (Chlorpromazine Hcl 100 Mg Tablet) 100 mg PO Q6H PRN PRN Reason: agitation Cyclobenzaprine HCl (Cyclobenzaprine Hcl 10 Mg Tablet) 10 mg PO BID PRN PRN Reason: Muscle Spasm Last Admin: 10/06/24 08:44 Dose: 10 mg Gabapentin (Gabapentin 400 Mg Capsule) 800 mg PO TID [facility] Last Admin: 10/06/24 08:44 Dose: 800 mg Hydroxyzine HCl (Hydroxyzine Hcl 25 Mg Tablet) 25 mg PO Q6H PRN PRN Reason: mild anxiety Last Admin: 10/06/24 02:17 Dose: 25 mg Lidocaine (Lidocaine 4 % Patch Adh..Patch) 1 patch TRANSDERMA DAILY PRN; Protocol PRN Reason: lower back Magnesium Hydroxide (Milk Of Magnesia 30 Ml Oral.Susp) 30 ml PO DAILY PRN PRN Reason: Constipation Methadone HCl (Methadone Hcl 20 Mg/2 Ml Oral.Conc) 45 mg PO DAILY@0800 [facility] Last Admin: 10/06/24 08:12 Dose: 45 mg Nicotine (Nicotine 21 Mg Patch.Td24) 21 mg TRANSDERMA DAILY PRN PRN Reason: Nicotine Cravings Nicotine Polacrilex (Nicotine Polacrilex Lozenge 4 Mg Lozenge) 4 mg BUCCAL Q1H PRN PRN Reason: Nicotine Cravings Last Admin: 10/06/24 01:13 Dose: 4 mg Nicotine Polacrilex (Nicotine Polacrilex 2 Mg Gum) 4 mg BUCCAL Q1H PRN PRN Reason: Nicotine Cravings Last Admin: 10/06/24 09:24 Dose: 4 mg Olanzapine (Olanzapine 5 Mg Tablet) 5 mg PO Q4H PRN PRN Reason: agitation Last Admin: 10/06/24 02:17 Dose: 5 mg Ondansetron HCl (Ondansetron Odt 4 Mg Tab.Rapdis) 4 mg TRANSLINGU Q6H PRN PRN Reason: Nausea and Vomiting Last Admin: 10/02/24 12:06 Dose: 4 mg Trazodone HCl (Trazodone Hcl 50 Mg Tablet) 50 mg PO BEDTIME MRX1 PRN PRN Reason: Insomnia Last Admin: 10/06/24 01:13 Dose: 50 mg Allergies Allergies Allergy/AdvReac Type Severity Reaction Status Date / Time chlorpromazine Allergy Unknown Verified 09/29/24 12:54 [From Thorazine] fish derived [fish] Allergy Unknown Verified 09/29/24 12:53 haloperidol [From Haldol] Allergy Unknown Verified 09/29/24 12:52 tomato Allergy Unknown Verified 09/29/24 12:54 quetiapine [From Seroquel] AdvReac Shakiness Verified 09/29/24 12:55 Assessment & Plan Assessment & Plan (1) Opioid use disorder, severe, dependence: Status: Acute Code(s): F11.20 - Opioid dependence, uncomplicated (2) Chronic post-traumatic stress disorder (PTSD): Status: Acute Code(s): F43.12 - Post-traumatic stress disorder, chronic Plan 33-year-old man with history of heroin and cocaine dependence going through withdrawals since he stopped his methadone and Xanax. Both were started at 60 mg and 1 mg b.i.d. to be decreased gradually over the next several days by 5 mg every 1-3 days. He is interested in getting off of the methadone, possibly Xanax. He is admitted on a CV. Outpatient referrals to be made Upon discharge. 10/01: Continue current regimen and plans. Decreased methadone as of tomorrow by 5 mg. Added Flexeril 10 mg b.i.d. p.r.n. 10/02: continue methadone 55 mg again tomorrow, then decrease to 50 mg as of 10/04. decrease xanax to 0.75 mg BID. decrease by 0.25 mg daily until taper completed. somewhat somnolent appearing today. 10/03: Methadone decreased to 50mg PO daily and xanax decreased to 0.75mg PO daily and 0.50mg@1400. 10/04: Xanax decreased to 0.5mg@0900, 1400. Pt denies any side effects from decrease in medications. 10/05: Xanax decreased to 0.5mg@0900 and 0.25mg@1400. Methadone decreased to 45mg PO daily. Continue with Xanax and Methadone taper. 10/06: Xanax 0.25 mg BID starting tomorrow otherwise continue current management and treatment plan.Encourage participation in groups and activities. Reason for continued inpatient stay Substantial Risk for: inability to function and rapid decompensation Time Spent With Patient Time: Total time managing care of this patient today ____ minutes.
[2024-10-06] MEDS: ALPRAZolam 0.25 MG TABLET PO (15:09)
[2024-10-06 20:00] VITALS: BP 156/100; PULSE 97; RESP 18; TEMP 36.6; O2SAT 98
[2024-10-07] MEDS: Nicotine Polacrilex Lozenge 4 MG LOZENGE BUCCAL ×3 (01:31→15:00)
[2024-10-07] MEDS: Cyclobenzaprine HCl 10 MG TABLET PO (01:31)
[2024-10-07 08:02] VITALS: BP 121/80; PULSE 93; RESP 18; TEMP 36.9; O2SAT 98
[2024-10-07] MEDS: methADONE HCl 20 MG/2 ML ORAL.CONC 45 MG PO (08:09)
[2024-10-07] MEDS: ALPRAZolam 0.25 MG TABLET PO ×2 (08:29→14:29)
[2024-10-07] MEDS: Gabapentin 400 MG CAPSULE 800 MG PO ×3 (08:29→23:33)
[2024-10-07] MEDS: Nicotine Polacrilex 2 MG GUM 4 MG BUCCAL ×2 (08:43→13:37)
--- NOTE | 2024-10-07 11:07 | P.PNPSI_ITS ---
Subjective Subjective Date of Service: 10/07/24 Reason For Visit: Detox Interim History: Patient seen. Discussed with RN. Tolerating taper of Xanax. He is down to 0.25 mg BID. He was given the choice of which dose of Xanax to discontinue tomorrow and he chose to stop the midday dose and keep the AM dose. He requested to change the timing of GBP in the day to 8, 12 and 4 PM. He denies SI/HI/VH/AH. Review of Systems Review of Systems Generalized muscle pain and spasms Yes all other systems are reviewed and are negative Mental Status Exam Mental Status Exam Narrative: In today's visit he is alert, oriented and pleasant. Normal speech. Good eye contact. Affect is appropriate and varied. No signs of psychosis. Cognitively is intact. No SI/HI. Judgment is intact. Able to move all limbs. No gait abnormalities. Patient Appearance: Well Grooomed Patient Orientation: Person, Place, Time and Situation Level of Consciousness: Awake and Alert Patient Behavior: Appropriate, Cooperative and Good Eye Contact Mood Description: Depressed and Anxious Affect Description: Blunted Ability to Follow Directions: Good Speech Pattern: Clear and Appropriate Memory Description: Intact Diagnostics Vital Signs (24Hr): Vital Signs - 24 hr 10/06/24 20:00 10/07/24 08:02 Temperature 98 F 98.5 F Pulse Rate 97 93 Respiratory Rate 18 18 Blood Pressure 156/100 H 121/80 Pulse Oximetry 98 98 Oxygen Delivery Method Room Air Room Air BMI result Body Mass Index 32.6 Medications Medications Current Medications Acetaminophen (Acetaminophen 325 Mg Tablet) 650 mg PO Q6H PRN PRN Reason: Headache/Pain, Scale 1-10 Al Hydroxide/Mg Hydroxide (Magnesium Hydrox/Alum Hydrox 30 Ml Oral.Susp) 30 ml PO Q6H PRN PRN Reason: Heartburn/Nausea Alprazolam (Alprazolam 0.25 Mg Tablet) 0.25 mg PO DAILY@1400 [facility] Stop: 10/07/24 14:01 Last Admin: 10/06/24 15:09 Dose: 0.25 mg Alprazolam (Alprazolam 0.25 Mg Tablet) 0.25 mg PO DAILY [facility] Last Admin: 10/07/24 08:29 Dose: 0.25 mg Chlorpromazine HCl (Chlorpromazine Hcl 100 Mg Tablet) 100 mg PO Q6H PRN PRN Reason: agitation Cyclobenzaprine HCl (Cyclobenzaprine Hcl 10 Mg Tablet) 10 mg PO BID PRN PRN Reason: Muscle Spasm Last Admin: 10/07/24 01:31 Dose: 10 mg Gabapentin (Gabapentin 400 Mg Capsule) 800 mg PO TID [facility] Last Admin: 10/07/24 08:29 Dose: 800 mg Hydroxyzine HCl (Hydroxyzine Hcl 25 Mg Tablet) 25 mg PO Q6H PRN PRN Reason: mild anxiety Last Admin: 10/06/24 02:17 Dose: 25 mg Lidocaine (Lidocaine 4 % Patch Adh..Patch) 1 patch TRANSDERMA DAILY PRN; Protocol PRN Reason: lower back Magnesium Hydroxide (Milk Of Magnesia 30 Ml Oral.Susp) 30 ml PO DAILY PRN PRN Reason: Constipation Methadone HCl (Methadone Hcl 20 Mg/2 Ml Oral.Conc) 45 mg PO DAILY@0800 [facility] Last Admin: 10/07/24 08:09 Dose: 45 mg Nicotine (Nicotine 21 Mg Patch.Td24) 21 mg TRANSDERMA DAILY PRN PRN Reason: Nicotine Cravings Nicotine Polacrilex (Nicotine Polacrilex Lozenge 4 Mg Lozenge) 4 mg BUCCAL Q1H PRN PRN Reason: Nicotine Cravings Last Admin: 10/07/24 09:47 Dose: 4 mg Nicotine Polacrilex (Nicotine Polacrilex 2 Mg Gum) 4 mg BUCCAL Q1H PRN PRN Reason: Nicotine Cravings Last Admin: 10/07/24 08:43 Dose: 4 mg Olanzapine (Olanzapine 5 Mg Tablet) 5 mg PO Q4H PRN PRN Reason: agitation Last Admin: 10/06/24 02:17 Dose: 5 mg Ondansetron HCl (Ondansetron Odt 4 Mg Tab.Rapdis) 4 mg TRANSLINGU Q6H PRN PRN Reason: Nausea and Vomiting Last Admin: 10/02/24 12:06 Dose: 4 mg Trazodone HCl (Trazodone Hcl 50 Mg Tablet) 50 mg PO BEDTIME MRX1 PRN PRN Reason: Insomnia Last Admin: 10/06/24 01:13 Dose: 50 mg Allergies Allergies Allergy/AdvReac Type Severity Reaction Status Date / Time chlorpromazine Allergy Unknown Verified 09/29/24 12:54 [From Thorazine] fish derived [fish] Allergy Unknown Verified 09/29/24 12:53 haloperidol [From Haldol] Allergy Unknown Verified 09/29/24 12:52 tomato Allergy Unknown Verified 09/29/24 12:54 quetiapine [From Seroquel] AdvReac Shakiness Verified 09/29/24 12:55 Assessment & Plan Assessment & Plan (1) Opioid use disorder, severe, dependence: Status: Acute Code(s): F11.20 - Opioid dependence, uncomplicated (2) Chronic post-traumatic stress disorder (PTSD): Status: Acute Code(s): F43.12 - Post-traumatic stress disorder, chronic Plan 33-year-old man with history of heroin and cocaine dependence going through withdrawals since he stopped his methadone and Xanax. Both were started at 60 mg and 1 mg b.i.d. to be decreased gradually over the next several days by 5 mg every 1-3 days. He is interested in getting off of the methadone, possibly Xanax. He is admitted on a CV. Outpatient referrals to be made Upon discharge. 10/01: Continue current regimen and plans. Decreased methadone as of tomorrow by 5 mg. Added Flexeril 10 mg b.i.d. p.r.n. 10/02: continue methadone 55 mg again tomorrow, then decrease to 50 mg as of 10/04. decrease xanax to 0.75 mg BID. decrease by 0.25 mg daily until taper completed. somewhat somnolent appearing today. 10/03: Methadone decreased to 50mg PO daily and xanax decreased to 0.75mg PO daily and 0.50mg@1400. 10/04: Xanax decreased to 0.5mg@0900, 1400. Pt denies any side effects from decrease in medications. 10/05: Xanax decreased to 0.5mg@0900 and 0.25mg@1400. Methadone decreased to 45mg PO daily. Continue with Xanax and Methadone taper. 10/06: Xanax 0.25 mg BID starting tomorrow otherwise continue current management and treatment plan.Encourage participation in groups and activities. 10/07: Continue current management and treatment plan and taper of Xanax. Changed timing of Gabapentin administration per his request. Reason for continued inpatient stay Substantial Risk for: inability to function and rapid decompensation Time Spent With Patient Time: Total time managing care of this patient today ____ minutes.
[2024-10-07 19:55] VITALS: RESP 18
[2024-10-08] MEDS: Nicotine Polacrilex Lozenge 4 MG LOZENGE BUCCAL ×6 (02:17→22:16)
[2024-10-08 07:10] VITALS: BP 130/92; PULSE 88; RESP 16; TEMP 36.7; O2SAT 95
[2024-10-08] MEDS: methADONE HCl 20 MG/2 ML ORAL.CONC 45 MG PO (07:59)
[2024-10-08] MEDS: ALPRAZolam 0.25 MG TABLET PO (08:18)
[2024-10-08] MEDS: Gabapentin 400 MG CAPSULE 800 MG PO ×3 (08:18→20:44)
[2024-10-08] MEDS: Nicotine Polacrilex 2 MG GUM 4 MG BUCCAL ×3 (08:48→20:45)
[2024-10-08] MEDS: Cyclobenzaprine HCl 10 MG TABLET PO (11:30)
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
[2024-10-08 20:00] VITALS: BP 132/90; PULSE 106; RESP 16; TEMP 36.9; O2SAT 96
[2024-10-09] MEDS: Nicotine Polacrilex Lozenge 4 MG LOZENGE BUCCAL ×2 (05:20→08:48)
[2024-10-09 07:43] VITALS: BP 137/93; PULSE 98; RESP 16; TEMP 36.7; O2SAT 97
[2024-10-09] MEDS: methADONE HCl 20 MG/2 ML ORAL.CONC 45 MG PO (08:01)
[2024-10-09] MEDS: ALPRAZolam 0.25 MG TABLET PO (08:48)
[2024-10-09] MEDS: Gabapentin 400 MG CAPSULE 800 MG PO (08:48)
== END 2024-10-09 10:17 | disposition other institution (70) | DRG 755 ==
PROVIDERS: Psychiatry & Neurology Psychiatry; Admitting Provider Psychiatry & Neurology Psychiatry; Visit Provider Psychiatry & Neurology Psychiatry
DX: F43.12 Post-traumatic stress disorder, chronic (principal); Z91.148 Patient's other noncompliance with medication regimen for other reason; F11.23 Opioid dependence with withdrawal; F14.23 Cocaine dependence with withdrawal; F17.210 Nicotine dependence, cigarettes, uncomplicated; Z71.6 Tobacco abuse counseling; F19.90 Other psychoactive substance use, unspecified, uncomplicated; F90.9 Attention-deficit hyperactivity disorder, unspecified type; Z79.899 Other long term (current) drug therapy
CPT/HCPCS: 36415; 80061

== ENCOUNTER → 2024-09-29 12:31 | Outpatient (BNV) | payer OTHER, SELFPAY | PROVIDERS: Admitting Provider Psychiatry & Neurology Psychiatry; Visit Provider Psychiatry & Neurology Psychiatry | DX: F11.20 Opioid dependence, uncomplicated (principal); F43.12 Post-traumatic stress disorder, chronic | CPT/HCPCS: 90792; 99231; 99232; 99239 ==

== ENCOUNTER → 2024-09-29 12:31 | Outpatient (BNV) | payer OTHER, SELFPAY | PROVIDERS: Admitting Provider Psychiatry & Neurology Psychiatry; Visit Provider Student in an Organized Health Care Education/Training Program | DX: Z00.8 Encounter for other general examination (principal) | CPT/HCPCS: 99222 ==